=== PATIENT | male | born 1960 | race Caucasian/White ===

== ENCOUNTER 2018-04-11 14:28 | Observation (INO) | payer MEDICAID ==
--- NOTE | 2018-04-11 15:02 | RAD ---
HISTORY: CP, chest pain, shortness of breath COMPARISONS: September 06, 2017. VIEWS: 1: frontal portable view of the chest at 2:47 PM. The right costophrenic angle is partially cut off. FINDINGS: LINES AND TUBES: None. CARDIOMEDIASTINAL SILHOUETTE: The cardiomediastinal silhouette is normal for portable technique. PLEURA: The left costophrenic angle is sharp. LUNG PARENCHYMA: There is patchy alveolar opacification of left lung base. ABDOMEN: The upper abdomen is clear. There is no subphrenic gas. BONES AND SOFT TISSUES: No bone or soft tissue abnormalities are noted. IMPRESSION: PATCHY LEFT BASILAR ATELECTASIS VERSUS EARLY CONSOLIDATION
[2018-04-11 15:12] LABS: ABS Basophils 0.1 10^3/ul (0-0.2); ABS Eosinophils 0.7 10^3/ul (0-0.6); ABS Lymphocytes 0.9 10^3/ul (1.0-4.8); ABS Monocytes 0.3 10^3/ul (0-0.8); ABS Neutrophils 2.1 10^3/ul (1.5-7.7); ABS Nucleated RBC 0 10^3/ul; Eosinophil % 17.4 % (0-6); Hematocrit 39 % (42-52); Hemoglobin 12.9 g/dl (14.0-18.0); Lymphocyte % 21.8 % (25-47); Mean Corpuscular HGB Conc 33 g/dl (31-36); Mean Corpuscular Hemoglobin 30 pg (27-31); Mean Corpuscular Volume 91 fL (80-94); Mean Platelet Volume 8.1 um3 (7.4-10.4); Nucleated Red Blood Cells % 0.1; Platelet Count 199 10^3/ul (150-450); Red Cell Distribution Width 14 % (10.5-15); White Blood Count 4.1 10^3/ul (3.5-10.8)
--- OUTSIDE RECORDS SUMMARY | 2018-04-11 15:12 | XMS REPORT ---
:1960 External Reference #:[id number] Author Organization [facility] Address [address] [place] [address] Phone [phone] Care Team Providers Name Role Phone Shelley Barillas M.D. Care Team Information [employer] Unavailable Shelley Barillas M.D. Primary Care Physician Unavailable Payers Type Date Identification Numbers Payment Provider Subscriber Medicaid Effective: 2014 Policy Number: [id number] [facility] Edin Christiansen PayID: [id number] [address] [address] [place] [address] Problems Date Description Provider Status Onset: 08/11/2010 Mild recurrent major depression Jim Jolly M.D. Active Onset: 08/11/2010 Generalized anxiety disorder Jim Jolly M.D. Active Onset: 08/11/2010 Benign essential hypertension Jim Jolly M.D. Active Onset: 08/11/2010 Irritable bowel syndrome Jim Jolly M.D. Active Onset: 08/25/2010 Coagulation factor deficiency Jim Jolly M.D. Active syndrome Onset: 08/11/2011 Burn One Digit Exc Thumb (2ND Deg) Jim Jolly M.D. Active Onset: 06/10/2015 Essential hypertension ANDRÉS Betancourt Active Onset: 06/22/2015 Allergic rhinitis Jim Jolly M.D. Active Onset: 06/22/2015 Gastroesophageal reflux disease Jim Jolly M.D. Active Onset: 10/05/2015 Acquired spondylolisthesis Jim Jolly M.D. Active Onset: 10/05/2015 Chronic pain syndrome Jim Jolly M.D. Active Onset: 10/05/2015 Aneurysm of thoracic aorta Jim Jolly M.D. Active Onset: 10/05/2015 Microscopic hematuria Jim Jolly M.D. Active Family History Date Family Member(s) Problem(s) Comments Father Coronary Artery Disease (CAD) Father Diabetes Mellitus, II Father Hypertension Mother Breast Cancer Mother Cancer Renal Mother Lung Cancer Mother Diabetes Mellitus, II Mother Hypertension First Brother Lung Cancer Paternal Grandfather Prostate Cancer Maternal Grandmother Neoplasm Of Brain Social History Type Date Description Comments Cigarette Use Current Cigarette Smoker Smoking Patient is a current smoker, smokes every day Allergies, Adverse Reactions, Alerts Date Description Reaction Status Severity Comments 07/10/2013 Erythromycin blisters active Medications Medication Date Status Form Strength Qnty SIG Indications Ordering Provider Nifedipine 12/29 Active Capsules 10mg 30cap Take One R60.0 Claribel s Capsule Patricio, By Mouth OXYACETYLENE CUTTER Every Day Silvadene 12/20 Active Cream 1% 20gm apply S31.102A small Crystal, amount POST OFFICE CLERK over lower abdomina l wall wound once daily Bupropion HCL ER 12/20 Active Tablets ER 300mg 90tab 1 by F34.1 Radha (XL) 24HR s mouth Crystal, every POST OFFICE CLERK day Cpap Mask 08/09 Active 1unit mask and s tubing. Crystal, Use as POST OFFICE CLERK directed . dx: g47.8 Biotene Dry 10/10 Active Liquid 1bott swish/sp R68.2 Radha Mouth le it 5 mL Crystal, up to 5 POST OFFICE CLERK times daily prn dry mouth Pain & Fever 1010 Active Tablets 500mg 120ta Take 1-2 Claribel Amy Extra Strength bs Tablets Patricio, By Mouth OXYACETYLENE CUTTER Every 12 Hours as Needed For Pain Nicoderm CQ 02/22 Active Patches 21mg/24HR 42uni 1 patch Z71.6 Radha 24HR ts transder Crystal, mal POST OFFICE CLERK every 24 hours Nicotine 02/22 Active Patches 14mg/24HR 42uni apply Z71.6 24HR ts once a Crystal, day for POST OFFICE CLERK 4 weeks, then go to every other day Nicotine Mini 02/22 Active Lozenges 2mg 162un use one Z71.6 its lozenge Crystal, every POST OFFICE CLERK hour as needed for cigarett e craving Compression 02/22 Active 14mm HG 2Sets x-large R60.0 Stock knee Crystal, high for POST OFFICE CLERK bilatera l use, 2 sets Furosemide 08/17 Active Tablets 40mg 60tab Take Two R60.0 Jim A. s Tablets Darlow, By Mouth M.D. Every Day Senna 01/28 Active Tablets 8.6mg 60tab take two s tablets Crystal, by mouth POST OFFICE CLERK every day Cialis 10/05 Active Tablets 20mg 2tabs take 08/29 - Darlow, tablet M.D. by mouth for a one time dose on given day, as directed maximum daily dose=one tablet Lorazepam 04/13 Active Tablets 0.5mg 90tab 1 by Radha /2015 s mouth Crystal, daily POST OFFICE CLERK three times a day Fluticasone 09/30 Active Suspension 50mcg/Act 16uni spray 2 J30.89 Radha Propionate ts sprays Crystal, in each POST OFFICE CLERK nostril at bedtime Potassium 03/25 Active Capsules 10Meq 60cap 2 by Radha Chloride ER /2013 ER s mouth Crystal, every POST OFFICE CLERK day with furosemi de Cyclobenzaprine Active Tablets 10mg 90tab 1 by Jim A. HCL / s mouth Darlow, three M.D. times a day Oxycodone HCL Active Tablets 15mg 1 by M51.36 Unknown /0000 mouth every 4h as needed pain Miralax Active Powder 3350NF 17 gm Unknown /0000 powder in fluid daily Gabapentin Active Capsules 300mg 120ca 2 by G89.4 Radha / ps mouth 3 Crystal, times a POST OFFICE CLERK day and 3 po qhs Pantoprazole Active Tablets DR 40mg 30tab Take One Jim A. Sodium / s Tablet Darlow, po bid M.D. Dicyclomine HCL Active Tablets 20mg 180ta Take 2 Rell F. /0000 bs Tablets Shallish, By Mouth M.D. AT Bedtime as Needed And 1 Tablet Every 6 Hours as Needed For Spasms Embeda Active Capsules 50-2mg Unknown /0000 ER Levofloxacin 09/07 Hx Tablets 500mg 10tab 1 by Radha /2018 s mouth Crystal, - every POST OFFICE CLERK 09/20 day 10 days Amoxicillin 07/19 Hx Tablets 875mg 14tab 1 tab Jim A. s twice a Shanae, - day x 7 M.D. Medrol 03/04 Hx TBPK 4mg 21uni use as Sandra LThomas ts directed Nay Wetzel M.D. 03/27 Doxycycline 02/22 Hx Capsules 100mg 28cap take one Z71.6 Radha Hycl s capsule Crystal, - by mouth POST OFFICE CLERK 03/06 twice a day Amoxicillin/Clav 01/12 Hx Tablets 875-125mg 20tab take one Jim AThomas anat s tab by Shanae Potassium - mouth M.D. 02/21 twice a day x 10 days Adjustable Cane 10/21 Hx 1unit use as Radha /2017 s directed Nay Rojas Dx: POST OFFICE CLERK 02/21 g89. Temazepam 09/14 Hx Capsules 15mg 30cap 1 by s mouth at [facility], - bedtime POST OFFICE CLERK 02/21 needed Amoxicillin/Clav 05/31 Hx Tablets 875-125mg 20tab take one Radha anat s tab by Crystal Potassium - mouth POST OFFICE CLERK 07/06 twice a day x 10 days Venlafaxine HCL 04/19 Hx Tablets 37.5mg 90tab take F34.[address] [facility], - day POST OFFICE CLERK 04/19 Bupropion HCL 04/19 Hx Tablets 100mg 60tab take F34.1 s twotable Crystal, - ts by POST OFFICE CLERK 12/20 /2017 every day Prednisone 03/15 Hx Tablets 5mg 78tab 12 po 782.1 s today, Crystal, - decrease POST OFFICE CLERK 05/12 by 1 qd until gone Mometasone 03/15 Hx Cream 0.1% 45gm apply to R21 Radha affected Crystal, - areas POST OFFICE CLERK 09/14 twice a day Physical Therapy 02/16 Hx please assist Crystal, - with POST OFFICE CLERK 05/12 gait and balance stabiliz ation in addition to lymphade nopathy treatmen ts; needs strength and enduranc e Citrucel 01/28 Hx Powder 907gm one dose K59.01 Radha per day Crystal, - to POST OFFICE CLERK 09/14 facilit te daily BM, orange flavor please Lasix 12/15 Hx Tablets 40mg 60tab 2 by R60.0 Jim s mouth Darlow, - daily M.D. 08/17 Nisoldipine ER 12/09 Hx Tablets ER 17mg 30tab Take One R60.0 24HR s Tablet Darlow, - By Mouth M.D. 12/29 Day Anucort-HC 11/18 Hx Suppositor 25mg [address] K64.1 y ts of [facility], - rectum Afnp-C 11/24 twice a day Nicoderm CQ 06/22 Hx Patches 21mg/24HR 42uni 1 patch 24HR ts daily x Shanae, - 6 weeks M.D. 08/03 Amoxicillin 05/15 Hx Tablets 875mg 14tab 1 po bid s Crystal, - POST OFFICE CLERK 06/10 Lisinopril 05/13 Hx Tablets 10mg 30tab Take One I10 Jim s Tablet Darlow, - By Mouth M.D. 01/28 Day Work Note 01/13 Hx Excuse E812.0 01/06-12/26 Eran, - 9; clear M.D. 05/13 to return to work 01/14 Amoxicillin 10/31 Hx Tablets 875mg 14tab 1 po bid s Crystal, - POST OFFICE CLERK 01/13 Oxycodone-Acetam 09/30 Hx Tablets 7.5-325mg 20tab 1 by Jim Hammer inophen s mouth Darlow, - every 6 M.D. 09/30 hours needed pain Oxycodone HCL 09/30 Hx Tablets 20mg 60tab 1 by Jim A. s mouth Darlow, - two M.D. 01/13 times a day Montelukast 09/30 Hx Tablets 10mg 90tab Take One 477.8 Jim A. s Tablet Darlow, - By Mouth M.D. 06/22 Day Mometasone 08/15 Hx Cream 0.1% 45gm apply to 782.1 Radha Furoate affected Crystal, - areas POST OFFICE CLERK 09/30 twice a day Prednisone 07/23 Hx Tablets 5mg 78tab 12 po 782.1 Jim A. s todayShanae, - decrease M.D. 08/04 by 1 qd until gone Oxycodone/Acetam 05/15 Hx Tablets 5-325mg 40tab 1 by Jim Hammer inophen s mouth Darbertha, - every 6 M.D. for pain Prednisone 04/23 Hx Tablets 5mg 78tab 12 po 782.1 Jim A. s Shanae christopher, - decrease M.D. 05/05 by 1 qd until gone Permethrin 03/25 Hx Cream 5% 2trea apply 782.1 Jim A. tmen head to Shanae, - toe M.D. 04/15 leave on for 8 hours then wash off, repeat in 2 weeks if not totally gone Prednisone 03/25 Hx Tablets 5mg 78tab 12 po 782.1 Jim A. s Shanae christopher, - decrease M.D. 04/06 by 1 qd until gone Lasix 03/25 Hx Tablets 20mg 90tab 2 by R60.0 Jim A. s mouth Shanae, - every M.D. Physical Therapy 01/27 Hx treatmen 724.5 Jim A. t and Shanae, - evaluati M.D. 02/08 on shoulder and bilatera l lower back pain Prednisone 01/27 Hx Tablets 10mg 19tab 4 po x 2 782.1 Jim A. s days, Darlow, - then 3 M.D. 02/03 po x 2 days, then 2 po x 2 days,the n 1 po x 1 day Diltiazem HCL ER 01/27 Hx Tablets ER 360mg 90tab 1 by Jim A. 24HR s mouth Darlow, - once a M.D. Cialis 12/25 Hx Tablets 10mg 9tabs Take 1 tablet Crystal, - by mouth POST OFFICE CLERK 08/15 one time per day for erectile dysfunct ion - Not Cialis for Daily Use Viagra 12/25 Hx Tablets 25mg 10tab take 1 302.72 s po 30-45 Crystal, - minutes POST OFFICE CLERK 01/27 prior to sexual intercou rse, nte 1 daily Prednisone 12/25 Hx Tablets 5mg 30tab take 2 691.8 s po bid x Crystal, - 3 days, POST OFFICE CLERK 01/27 take 1 po tid x 3 days, then take 1 po bid x 3 days, then 1 po qd x 3 days, then stop Eucerin 12/25 Hx Cream 1bott apply 691.[address] [facility], - shower POST OFFICE CLERK 09/30 Doxycycline 12/25 Hx Tablets 100mg 20tab one tab 682.8 s po bid Crystal, - for 10 POST OFFICE CLERK Levofloxacin 11/13 Hx Tablets 500mg 10tab 1 po qd Jim . s x10 days Shanae, - M.D. 11/23 Cialis 10/24 Hx Tablets 10mg 9tabs Take 1 tablet Darlow, - by mouth M.D. 12/25 one time per day for erectile dysfunct ion - Not Cialis for Daily Use Iron Supplement 07/15 Hx Tablets 325(65Fe) mg 90tab 1 po qd Radha /2013 s Crystal, - POST OFFICE CLERK 07/31 Lasix 07/10 Hx Tablets 20mg 30tab 08/29 tab 782.3 s po qd as Crystal, - directed POST OFFICE CLERK 07/31 Cartia XT 11/20 Hx Caps ER 240mg 90cap 1 po qd Radha 24HR s Crystal, - POST OFFICE CLERK 07/31 Lisinopril 11/20 Hx Tablets 10mg 90tab 1 po qd Jim A. Nay Ward M.D. 07/10 Amoxicillin 08/19 Hx Tablets 875mg 14tab 1 po bid Jim A. /2010 Nay Ward M.D. 08/26 Ativan 08/08 Hx Tablets 0.5mg 60tab 1 by Jim A. s mouth up Shanae, - to twice M.D. 05/13 a day directed Cardizem CD 07/06 Hx Caps ER 120mg 30cap 2 po qd 443.0 Jim A. 24HR s Nay Jolly M.D. 11/20 Zaleplon 06/01 Hx Capsules 10mg 30cap 1 qd 296.31 Jim A. /2010 Nay Ward M.D. 07/10 Ciprofloxacin 04/13 Hx Tablets 250mg 20tab 1 po bid Jim Hammer Nay Ward M.D. 04/23 Tylenol/Codeine 04/13 Hx Tablets 300-30mg 20tab 1 po q6h Jim Hammer #3 s prn pain Nay Jolly M.D. 04/18 Nifediac cc 02/28 Hx Tablets ER 30mg 30tab Take 1 443.0 Jim A. 24HR s Tablet Shanae, - By Mouth M.DThomas 07/06 Day Potassium 02/25 Hx Capsules 10Meq 60cap take one Radha Chloride ER ER s capsule Crystal, - by mouth POST OFFICE CLERK 07/31 day with lasix Chato Stockings 02/21 Hx Medium 2Pair wear as R60.0 Radha Below Knee Compression directed Crystal, - ; POST OFFICE CLERK 02/21 for medium compress ion 30-40 dx: r60.0 Lasix 02/21 Hx Tablets 10mg 30tab 1 po qd 782.3 Jim A. s as Shanae - directed M.DThomas 07/10 Lunesta 02/10 Hx Tablets 3mg 30tab 1 po qhs Jim A. /2010 s Nay Jolly M.DThomas 02/21 Zolpidem 01/18 Hx Tablets 10mg 30tab 1 qhs Jim A. Tar s aNy Jolly M.DThomas 08/08 Adalat cc 08/25 Hx Tablets ER 30mg 30tab 1 po qd 443.0 Ijm A. 24HR Nay Ward.DThomas 02/28 Vitamin D Hx Tablets 2000Unit 30tab 1 po qd Unknown / s - 02/21 Vistaril Hx Capsules 25mg 360ca 1 or 2 Jim A. /0000 ps every 6 Darbertha, - hours M.D. 08/08 pr Trazodone HCL Hx Tablets 50mg 135ta 1-1 1/2 Jim A. /0000 bs tablet Shanae, - hs prn M.D. 01/18 sleep Lisinopril Hx Tabs 20mg 90tab Take 1 Jim A. /0000 s Tablet Darlow, - By Mouth M.D. 02/21 Day Potassium Hx Tablets 2 po qd Unknown Gluconate / - 02/25 Vitamin B-12 Hx Injection q 4 Unknown /0000 weeks - 07/10 Ferrous Sulfate Hx Tablets 325(65Fe) mg 30tab 1 po qd Unknown /0000 s - 08/11 Bupropion HCL ER 0000 Hx Tablets ER 200mg 90tab 1 po qd Jim A. /0000 12HR s Nay Jolly M.DThomas 07/31 Lisinopril Hx Tablets 20mg 90tab Take 1/2 Jim A. /0000 s Tablet Darlow, - By Mouth M.D. 11/20 Day Trazodone HCL 00 Hx Tablets 300mg 30tab take one Jim A. /0000 s tablet Darbertha, - by mouth M.D. 05/13 at bedtime Iron Infusion 00/ Hx once q Unknown /0000 week - 01/27 Diltiazem HCL / Hx Caps ER 360mg 30cap 1 po qd Jim A. /0000 24HR s Shanae, - M.D. 01/27 Bupropion HCL SR Hx Tablets ER 150mg 60tab 1 po qd Unknown /0000 12HR s - 12/25 Gabapentin Hx Capsules 300mg 90cap 1 by Unknown /0000 s mouth - three 10/20 times day Oxycodone HCL Hx Tablets 10mg 1 po up Unknown /0000 to 5 - times 05/13 per prn Advil Hx Tablets 200mg prn Unknown /0000 - 05/13 Gabapentin Hx Capsules 600mg 1 po qid M51.36 Unknown / - 12/09 Valium / Hx Tablets 5mg 1 po q 6 Unknown /0000 hrs prn - muscle 01/28 spasms Senna /00 Hx Tablets 8.6 60tab 2 by Jim A. /0000 s mouth Shanae, - every M.D. Senna-Lax /[address] daily Unknown /0000 - 12/09 Morphine Sulfate 00/00 Hx Caps ER 30mg 1 q 12 Unknown ER /0000 24HR hrs - 01/28 Clindamycin HCL 00/ Hx Capsules 1 po qid Unknown /0000 - 01/28 Fentanyl 00/00 Hx Patches 25mcg/HR change q Unknown /0000 72HR 3 days - 07/06 Fentanyl 00/00 Hx 12.5mcg/ Change Unknown /0000 Every - Days 07/06 Bactrim DS 00/00 Hx Tablets 800-160mg 1 by Unknown /0000 mouth - twice a /2016 x7days Fentanyl 00/00 Hx Patches 50mcg/HR change Unknown /0000 72HR q3 days - 03/28 Benadryl Allergy 00 Hx Tablets 25mg 180ta 1 - 2 by Jim A. /0000 bs mouth Darlow, - every 8 M.D. Acetaminophen 00 Hx Tablets 325mg 180ta take one Jim A. /0000 bs to two Darlow, - tablets M.D. 06/06 by mouth three times a day Banophen Hx Capsules 25mg 180ca take one Radha /0000 ps to two Crystal, - capsules POST OFFICE CLERK 12/20 by mouth every 8 hours max/day= 6 Morphine Sulfate Hx Caps ER Unknown ER 24HR - 03/28 Medications Administered in Office Medication Date Status Form Strength Qnty SIG Indications Ordering Provider Brief 12/20/ Administered Injection Radha Emotional/Behav 2017 Crystal, Assessment W/ POST OFFICE CLERK Scoring Doc Per Standard Inst B-12 Injection 01/27/ Administered Injection Jim A. 2013 Romel Jolly Injection 01/27/ Administered Injection Jim AThomas Subcutaneous Or 2013 Farhat Jolly M.D. B-12 Injection 11/20/ Administered Injection Jim A. 2011 Romel Jolly Injection 11/20/ Administered Injection Jim AThomas Subcutaneous Or 2011 Farhat Jolly M.D. Immunizations CPT Code Status Date Vaccine Lot # [id number] Given 12/20/2017 Tdap Tetanus, W Pertussis [id number] Given 12/20/2017 Pneumococcal Conjugate Vacc-13 [id number] 22200 Given 06/06/2017 Influenza Vac, Quadrivalent, Slit Virus, Im [id number] Given 07/06/2016 Influenza Vac, Quadrivalent, Slit Virus, Im [id number] [id number] Given 07/10/2013 DO Not Use Split Influenza Virus Vaccine [id number] Given 08/11/2010 DO Not Use Split Influenza Virus Vaccine [id number] Vital Signs Date Vital Result Comment 03/28/2018 BP Systolic 158 mmHg BP Diastolic 90 mmHg Heart Rate 84 /min Body Temperature 98.0 F Respiratory Rate 18 /min Weight 336.00 lb 12/20/2017 BP Systolic 134 mmHg BP Diastolic 82 mmHg Heart Rate 76 /min Body Temperature 98.5 F Respiratory Rate 16 /min Height 74 inches 6'2" Weight 340.00 lb BMI (Body Mass Index) 43.6 kg/m2 09/21/2017 BP Systolic 136 mmHg BP Diastolic 82 mmHg Heart Rate 80 /min Body Temperature 97.9 F Height 74 inches 6'2" Weight 320.25 lb BMI (Body Mass Index) 41.1 kg/m2 09/06/2017 BP Systolic 110 mmHg BP Diastolic 70 mmHg Heart Rate 92 /min Body Temperature 98.2 F Respiratory Rate 18 /min O2 % BldC Oximetry 95 % Height 74 inches 6'2" Weight 324.00 lb BMI (Body Mass Index) 41.6 kg/m2 06/06/2017 BP Systolic 126 mmHg BP Diastolic 66 mmHg Heart Rate 84 /min Body Temperature 98.1 F Respiratory Rate 16 /min Height 74 inches 6'2" Weight 327.50 lb BMI (Body Mass Index) 42.0 kg/m2 02/22/2017 BP Systolic 146 mmHg BP Diastolic 80 mmHg Heart Rate 86 /min Body Temperature 98.4 F Height 74 inches 6'2" Weight 313.12 lb BMI (Body Mass Index) 40.2 kg/m2 09/14/2016 BP Systolic 140 mmHg BP Diastolic 82 mmHg Heart Rate 64 /min Body Temperature 98.4 F Respiratory Rate 18 /min Height 74 inches 6'2" Weight 331.25 lb BMI (Body Mass Index) 42.5 kg/m2 07/13/2016 BP Systolic 124 mmHg BP Diastolic 78 mmHg Heart Rate 68 /min Body Temperature 98.0 F Respiratory Rate 16 /min Height 74 inches 6'2" Weight 336.12 lb BMI (Body Mass Index) 43.2 kg/m2 07/06/2016 BP Systolic 126 mmHg BP Diastolic 80 mmHg Heart Rate 76 /min Body Temperature 98.0 F Respiratory Rate 18 /min Height 74 inches 6'2" Weight 336.12 lb BMI (Body Mass Index) 43.2 kg/m2 05/13/2016 BP Systolic 154 mmHg BP Diastolic 86 mmHg Heart Rate 84 /min Body Temperature 98.1 F Height 74 inches 6'2" Weight 341.38 lb BMI (Body Mass Index) 43.8 kg/m2 04/19/2016 BP Systolic 132 mmHg BP Diastolic 80 mmHg Heart Rate 80 /min Body Temperature 98.8 F Respiratory Rate 18 /min Height 74 inches 6'2" 02/17/2016 BP Systolic 124 mmHg BP Diastolic 82 mmHg Heart Rate 72 /min Body Temperature 98.0 F Respiratory Rate 18 /min Height 74 inches 6'2" Weight 332.00 lb BMI (Body Mass Index) 42.6 kg/m2 01/29/2016 BP Systolic 130 mmHg BP Diastolic 80 mmHg Heart Rate 76 /min Body Temperature 98.5 F Respiratory Rate 16 /min Height 74 inches 6'2" Weight 315.00 lb BMI (Body Mass Index) 40.4 kg/m2 12/16/2015 BP Systolic 130 mmHg BP Diastolic 80 mmHg Heart Rate 80 /min Body Temperature 98.0 F Respiratory Rate 18 /min Height 74 inches 6'2" Weight 322.00 lb BMI (Body Mass Index) 41.3 kg/m2 12/10/2015 BP Systolic 138 mmHg BP Diastolic 80 mmHg Heart Rate 80 /min Body Temperature 98.0 F Respiratory Rate 16 /min Height 74 inches 6'2" Weight 320.00 lb BMI (Body Mass Index) 41.1 kg/m2 11/19/2015 BP Systolic 140 mmHg BP Diastolic 84 mmHg Heart Rate 62 /min Body Temperature 97.9 F Respiratory Rate 20 /min Height 74 inches 6'2" Weight 318.00 lb BMI (Body Mass Index) 40.8 kg/m2 10/05/2015 BP Systolic 130 mmHg BP Diastolic 80 mmHg Heart Rate 76 /min Body Temperature 98.6 F Respiratory Rate 12 /min Height 74 inches 6'2" Weight 308.00 lb BMI (Body Mass Index) 39.5 kg/m2 07/03/2015 BP Systolic 124 mmHg BP Diastolic 90 mmHg Heart Rate 64 /min Body Temperature 97.2 F Respiratory Rate 12 /min Height 74 inches 6'2" Weight 320.00 lb BMI (Body Mass Index) 41.1 kg/m2 06/22/2015 BP Systolic 150 mmHg BP Diastolic 84 mmHg Heart Rate 76 /min Body Temperature 97.8 F Respiratory Rate 16 /min Height 74 inches 6'2" Weight 320.00 lb BMI (Body Mass Index) 41.1 kg/m2 06/10/2015 BP Systolic 128 mmHg BP Diastolic 82 mmHg Heart Rate 88 /min Body Temperature 98.6 F Respiratory Rate 16 /min Height 74 inches 6'2" Weight 324.12 lb BMI (Body Mass Index) 41.6 kg/m2 05/13/2015 BP Systolic 148 mmHg BP Diastolic 92 mmHg Heart Rate 64 /min Body Temperature 98.4 F Respiratory Rate 16 /min Height 74 inches 6'2" Weight 327.25 lb BMI (Body Mass Index) 42.0 kg/m2 01/13/2015 BP Systolic 130 mmHg BP Diastolic 80 mmHg Heart Rate 64 /min Body Temperature 98.2 F Respiratory Rate 12 /min Height 74 inches 6'2" Weight 322.00 lb BMI (Body Mass Index) 41.3 kg/m2 10/20/2014 BP Systolic 138 mmHg BP Diastolic 80 mmHg Heart Rate 64 /min Body Temperature 97.8 F Respiratory Rate 12 /min Height 74 inches 6'2" Weight 314.00 lb BMI (Body Mass Index) 40.3 kg/m2 09/30/2014 BP Systolic 130 mmHg BP Diastolic 80 mmHg Heart Rate 64 /min Body Temperature 97.6 F Respiratory Rate 20 /min O2 % BldC Oximetry 95 % Height 74 inches 6'2" Weight 316.00 lb BMI (Body Mass Index) 40.6 kg/m2 08/15/2014 BP Systolic 136 mmHg BP Diastolic 82 mmHg Heart Rate 76 /min Body Temperature 98.1 F Respiratory Rate 16 /min Height 74 inches 6'2" Weight 314.00 lb BMI (Body Mass Index) 40.3 kg/m2 03/25/2014 BP Systolic 130 mmHg BP Diastolic 78 mmHg Heart Rate 72 /min Body Temperature 97.4 F Respiratory Rate 15 /min Height 74 inches 6'2" Weight 308.00 lb BMI (Body Mass Index) 39.5 kg/m2 01/27/2014 BP Systolic 130 mmHg BP Diastolic 86 mmHg Heart Rate 72 /min Body Temperature 97.5 F Respiratory Rate 12 /min Height 74 inches 6'2" Weight 295.00 lb BMI (Body Mass Index) 37.9 kg/m2 12/25/2013 BP Systolic 122 mmHg BP Diastolic 80 mmHg Heart Rate 60 /min Body Temperature 97.6 F Respiratory Rate 16 /min Height 74 inches 6'2" Weight 299.00 lb BMI (Body Mass Index) 38.4 kg/m2 10/28/2013 BP Systolic 126 mmHg BP Diastolic 80 mmHg Heart Rate 62 /min Body Temperature 97.5 F Respiratory Rate 18 /min Height 74 inches 6'2" Weight 285.00 lb BMI (Body Mass Index) 36.6 kg/m2 07/31/2013 BP Systolic 116 mmHg BP Diastolic 70 mmHg Heart Rate 60 /min Body Temperature 97.4 F Respiratory Rate 16 /min Height 74 inches 6'2" Weight 279.00 lb BMI (Body Mass Index) 35.8 kg/m2 07/10/2013 BP Systolic 120 mmHg BP Diastolic 80 mmHg Heart Rate 60 /min Body Temperature 97.2 F Respiratory Rate 16 /min Height 74 inches 6'2" Weight 283.00 lb BMI (Body Mass Index) 36.3 kg/m2 11/21/2011 BP Systolic 120 mmHg BP Diastolic 70 mmHg Heart Rate 60 /min Body Temperature 98.4 F Respiratory Rate 16 /min Height 74 inches 6'2" Weight 293.00 lb BMI (Body Mass Index) 37.6 kg/m2 08/17/2011 BP Systolic 120 mmHg BP Diastolic 80 mmHg Heart Rate 68 /min Body Temperature 98.0 F Respiratory Rate 12 /min Height 74 inches 6'2" Weight 297.00 lb BMI (Body Mass Index) 38.1 kg/m2 08/11/2011 BP Systolic 120 mmHg BP Diastolic 84 mmHg Heart Rate 60 /min Body Temperature 98.0 F Respiratory Rate 16 /min Height 74 inches 6'2" Weight 288.00 lb BMI (Body Mass Index) 37.0 kg/m2 06/01/2011 BP Systolic 120 mmHg BP Diastolic 80 mmHg Heart Rate 64 /min Body Temperature 97.7 F Respiratory Rate 12 /min Height 74 inches 6'2" Weight 294.00 lb BMI (Body Mass Index) 37.7 kg/m2 04/25/2011 BP Systolic 140 mmHg BP Diastolic 80 mmHg Heart Rate 60 /min Body Temperature 98.1 F Respiratory Rate 16 /min Height 74 inches 6'2" Weight 293.00 lb BMI (Body Mass Index) 37.6 kg/m2 02/21/2011 BP Systolic 130 mmHg BP Diastolic 80 mmHg Heart Rate 60 /min Body Temperature 98.6 F Respiratory Rate 20 /min Height 74 inches 6'2" Weight 291.00 lb BMI (Body Mass Index) 37.4 kg/m2 08/25/2010 BP Systolic 118 mmHg BP Diastolic 80 mmHg Heart Rate 60 /min Body Temperature 97.4 F Respiratory Rate 12 /min Height 74 inches 6'2" Weight 277.00 lb BMI (Body Mass Index) 35.6 kg/m2 08/11/2010 BP Systolic 118 mmHg BP Diastolic 78 mmHg Heart Rate 72 /min Body Temperature 97.7 F Respiratory Rate 16 /min Height 74 inches 6'2" Weight 278.00 lb BMI (Body Mass Index) 35.7 kg/m2 Results Test Date Test Result H/L Range Note CBC Auto Diff 03/06/2018 White Blood Count 3.4 10^3/uL Low 3.5-10.8 Red Blood Count 4.39 10^6/uL 4.00-5.40 Hemoglobin 13.3 g/dL Low 14.0-18.0 Hematocrit 41 % Low 42-52 Mean Corpuscular Volume 93 fL 80-94 Mean Corpuscular Hemoglobin 30 pg 27-31 Mean Corpuscular HGB Conc 33 g/dL 31-36 Red Cell Distribution Width 14 % 10.5-15 Platelet Count 170 10^3/uL 150-450 Mean Platelet Volume 8.7 um3 7.4-10.4 Abs Neutrophils 1.9 10^3/uL 1.5-7.7 Abs Lymphocytes 0.6 10^3/uL Low 1.0-4.8 Abs Monocytes 0.3 10^3/uL 0-0.8 Abs Eosinophils 0.6 10^3/uL 0-0.6 Abs Basophils 0 10^3/uL 0-0.2 Abs Nucleated RBC 0 10^3/uL Granulocyte % 55.0 % 38-83 Lymphocyte % 18.8 % Low 25-47 Monocyte % 8.8 % High 0-7 Eosinophil % 16.9 % High 0-6 Basophil % 0.5 % 0-2 Nucleated Red Blood Cells % 0.2 Iron & Iron Binding Capacity 03/06/2018 Iron 72 g/dL 50-212 Unsaturated Iron Binding 174 g/dL Total Iron Binding Capacity 246 g/dL Low 250-450 Transferrin 176 mg/dL Low 203-362 % Iron Saturation 29 % 15-55 Laboratory test finding 03/06/2018 Ferritin 84.1 ng/mL 24-336 Vitamin B12 1223 pg/mL High 180-914 1 Lipid Profile 12/20/2017 Cholesterol 144 mg/dL 120-200 Triglycerides 107 mg/dL 30-200 HDL Cholesterol 45 mg/dL 30-70 LDL (Calculated) 78 CALC 0-129 VLDL Cholesterol 21 mg/dL 0-50 HDL Risk Factor 3.2 CALC 0.0-4.4 Iron & Iron Binding Capacity 11/13/2017 Iron 28 g/dL Low 50-212 Unsaturated Iron Binding 252 g/dL Total Iron Binding Capacity 280 g/dL 250-450 Transferrin 200 mg/dL Low 203-362 % Iron Saturation 10 % Low 15-55 Laboratory test finding 11/13/2017 Ferritin 41.8 ng/mL 24-336 Vitamin B12 268 pg/mL 180-914 2 CBC Auto Diff 11/13/2017 White Blood Count 3.9 10^3/uL 3.5-10.8 Red Blood Count 4.22 10^6/uL 4.0-5.4 Hemoglobin 12.5 g/dL Low 14.0-18.0 Hematocrit 39 % Low 42-52 Mean Corpuscular Volume 92 fL 80-94 Mean Corpuscular Hemoglobin 30 pg 27-31 Mean Corpuscular HGB Conc 32 g/dL 31-36 Red Cell Distribution Width 15 % 10.5-15 Platelet Count 180 10^3/uL 150-450 Mean Platelet Volume 9 um3 7.4-10.4 Abs Neutrophils 2.2 10^3/uL 1.5-7.7 Abs Lymphocytes 0.7 10^3/uL Low 1.0-4.8 Abs Monocytes 0.4 10^3/uL 0-0.8 Abs Eosinophils 0.5 10^3/uL 0-0.6 Abs Basophils 0 10^3/uL 0-0.2 Abs Nucleated RBC 0 10^3/uL Granulocyte % 56.8 % 38-83 Lymphocyte % 17.6 % Low 25-47 Monocyte % 11.1 % High 0-7 Eosinophil % 13.4 % High 0-6 Basophil % 1.1 % 0-2 Nucleated Red Blood Cells % 0 Laboratory test finding 09/21/2017 Sedimentation Rate 23mm Laboratory test finding 09/21/2017 Vitamin B-12 568 pg/mL 230-1050 Complete Blood Count 09/21/2017 WBC 5.6 x10^3/UL 3.6-9.6 RBC 4.38 x10^6/UL 3.90-5.70 HGB 13.0 g/dL 12.1-17.2 HCT 40 % 36-50 MCV 92.0 fL 82.2-97.4 MCH 29.6 pg 27.6-33.3 MCHC 32.2 g/dL Low 33.0-35.5 RDW 14.4 % High 11.6-13.7 PLT 304 x10^3/UL 150-400 MPV 7.6 fL 7.4-10.4 Gran # 4.3 x10^3/UL 1.5-7.2 Lymph# 1.0 x10^3/UL 0.7-4.9 Larue# 0.3 x10^3/UL 0.1-0.9 Gran % 75.0 % 42.2-75.2 Lymph % 18.6 % Low 20.5-51.1 Larue% 6.4 % 1.7-9.3 Laboratory test finding 06/06/2017 Magnesium, Serum 2.0 mEq/L 1.2-2.1 Comprehensive Metabolic Prof 06/06/2017 Sodium 141 mEq/L 134-149 Potassium 4.4 mEq/L 3.6-5.5 Chloride 102 mEq/L 94-112 Carbon Dioxide 26 mEq/L 21-32 Glucose 83 mg/dL 70-105 BUN 9 mg/dL 6-26 Creatinine 1.0 mg/dL 0.6-1.4 BUN/Creat Ratio 9.0 CALC 8.0-36.0 Calcium 8.1 mg/dL Low 8.6-10.2 3 Total Protein 6.0 g/dL Low 6.4-8.3 4 Albumin 3.6 g/dL Low 3.8-5.5 5 Globulin 2.4 g/dL 2.0-4.8 A/G Ratio 1.5 CALC 0.6-2.3 Alk. Phosphatase 79 U/L 22-95 Alt (SGPT) 10 U/L 7-35 Ast (Sgot) 13 U/L 5-34 Total Bilirubin 0.3 mg/dL 0.2-1.3 GFR Non- >60 ml/min/1.73m^ >=60 GFR >60 ml/min/1.73m^ >=60 Toxassure Select 13 (MW) 02/22/2017 Report Summary FINAL 6 PDF . Laboratory test finding 02/22/2017 Specimen Identification Status See Comment: 7 PDF [id number] SEE IMAGE Electrolytes Profile 09/19/2016 Sodium 140 mEq/L 134-149 Potassium 4.5 mEq/L 3.6-5.5 Chloride 106 mEq/L 94-112 Carbon Dioxide 27 mEq/L 21-32 Anion Gap 11.5 7.0-34.0 Laboratory test 08/08/2016 Surgical Interface SEE RESULT BELOW 8 finding Order Laboratory test 07/01/2016 Wound Culture/Sensi SEE RESULT BELOW 9, 10 finding Comp Metabolic Panel 12/10/2015 Sodium 140 mmol/L 133-145 Potassium 4.7 mmol/L 3.5-5.0 Chloride 105 mmol/L 101-111 Co2 Carbon Dioxide 30 mmol/L 22-32 Anion Gap 5 mmol/L 2-11 Glucose 82 mg/dL 70-100 Blood Urea Nitrogen 19 mg/dL 6-24 Creatinine 1.31 mg/dL High 0.67-1.17 BUN/Creatinine Ratio 14.5 8-20 Calcium 8.0 mg/dL Low 8.6-10.3 Total Protein 5.4 g/dL Low 6.4-8.9 Albumin 3.3 g/dL 3.2-5.2 Globulin 2.1 g/dL 2-4 Albumin/Globulin Ratio 1.6 1-3 Total Bilirubin 0.30 mg/dL 0.2-1.0 Alkaline Phosphatase 71 U/L 34-104 Alt 11 U/L 7-52 Ast 11 U/L Low 13-39 Egfr Non- 57.0 >60 Egfr 73.3 >60 11 Laboratory test finding 12/10/2015 Magnesium 1.8 mg/dL Low 1.9-2.7 Ua - Micro (Fma) 06/10/2015 Appearance clear Color yellow Glucose, Urine (Fma/CMC/CTX) neg Bilirubin neg Ketones neg SP Grav <=1.005 Blood large PH 5.5 Protein neg Urobil 0.2 Nitrite neg Leukocytes (Fma/CMC/Centrex) neg Hyaline - /Lpf Granular - /Lpf WBC (Fma,Centrex) 0-2 RBC >100 Mucus - /Lpf Epith rare /Lpf Bacteria - /Hpf Amorphous - /Lpf Crystals, Fluid (Fma/CMC/CTX) - Urine Culture Routine 06/10/2015 Urine Culture, Routine Final report 12 , 13 Result 1 No growth 12, 14 Laboratory test finding 10/20/2014 TSH 0.53 mIU/L 0.50-6.00 Thyroid Autoantibodies 10/20/2014 Thyroglobulin Ab Scrn <1.8 IU/mL <4.0 15, 16 Thyroperoxidase Ab 0.3 IU/mL <9.0 15 Laboratory test finding 10/02/2014 Total T3 1.14 ng/mL 0.87-1.78 17, 18 Free Thyroxine Index 10/02/2014 Thyroxine Binding 1.1 TBI 0.8 - 1.3 17 (Fti),Serum Panel Capacity, S Thyroxine, Total, S 7.9 g/dL 4.5 - 11.7 17 Free Thyroxine Index 7.2 g/dL 4.8 - 12.7 17, 19 Laboratory test 09/30/2014 Free T4 0.99 ng/dL 0.75-1.54 finding Laboratory test 09/30/2014 Brain Natural Peptide 16.1 pg/mL <100 finding Laboratory test 09/30/2014 Homocysteine 16 mcmol/L 20, 21 finding Methylmalonic Acid 0.24 nmol/mL <=0.40 20, 22 Comprehensive Metabolic Prof 09/30/2014 Sodium 138 mEq/L 134-149 Potassium 4.3 mEq/L 3.6-5.5 Chloride 103 mEq/L 94-112 Carbon Dioxide 29 mEq/L 21-32 Glucose 117 mg/dL High 70-105 23 BUN 12 mg/dL 6-26 Creatinine 1.0 mg/dL 0.6-1.4 BUN/Creat Ratio 12.0 CALC 8.0-36.0 Calcium 8.8 mg/dL 8.6-10.2 Total Protein 6.5 g/dL 6.4-8.3 Albumin 3.9 g/dL 3.8-5.5 Globulin 2.6 g/dL 2.0-4.8 A/G Ratio 1.5 CALC 0.6-2.3 Alk. Phosphatase 75 U/L 22-95 Alt (SGPT) 21 U/L 7-35 Ast (Sgot) 17 U/L 5-34 Total Bilirubin 0.6 mg/dL 0.2-1.3 Laboratory test finding 09/30/2014 TSH 0.47 mIU/L Low 0.50-6.00 24 Vitamin B-12 587 pg/mL 230-1050 Ferritin 57 ng/mL 22-415 Complete Blood Count 09/30/2014 WBC 5.5 x10^3/UL 3.6-9.6 RBC 4.89 x10^6/UL 3.90-5.70 HGB 15.1 g/dL 12.1-17.2 HCT 45 % 36-50 MCV 92.0 fL 82.2-97.4 MCH 30.8 pg 27.6-33.3 MCHC 33.6 g/dL 33.0-35.5 RDW 12.4 % 11.6-13.7 PLT 179 x10^3/UL 150-400 MPV 7.8 fL 7.4-10.4 Gran # 4.4 x10^3/UL 1.5-7.2 Lymph# 1.0 x10^3/UL 0.7-4.9 Larue# 0.1 x10^3/UL 0.1-0.9 Gran % 77.5 % High 42.2-75.2 Lymph % 19.5 % Low 20.5-51.1 Larue% 3.0 % 1.7-9.3 Laboratory test finding 09/05/2014 [facility] [place] [facility] [place] Comprehensive Metabolic Prof 08/15/2014 Sodium 143 mEq/L 134-149 Potassium 5.1 mEq/L 3.6-5.5 Chloride 103 mEq/L 94-112 Carbon Dioxide 26 mEq/L 21-32 Glucose 77 mg/dL 70-105 BUN 11 mg/dL 6-26 Creatinine 1.0 mg/dL 0.6-1.4 BUN/Creat Ratio 11.0 CALC 8.0-36.0 Calcium 8.7 mg/dL 8.6-10.2 Total Protein 6.8 g/dL 6.4-8.3 Albumin 3.9 g/dL 3.8-5.5 Globulin 2.4 g/dL 2.0-4.8 A/G Ratio 1.3 CALC 0.6-2.3 Alk. Phosphatase 65 U/L 22-95 Alt (SGPT) 15 U/L 7-35 Ast (Sgot) 13 U/L 5-34 Total Bilirubin 0.4 mg/dL 0.2-1.3 Complete Blood Count 08/15/2014 WBC 5.1 x10^3/UL 3.6-9.6 RBC 4.75 x10^6/UL 3.90-5.70 HGB 14.6 g/dL 12.1-17.2 HCT 43 % 36-50 MCV 91.0 fL 82.2-97.4 MCH 30.7 pg 27.6-33.3 MCHC 33.8 g/dL 33.0-35.5 RDW 13.1 % 11.6-13.7 PLT 168 x10^3/UL 150-400 MPV 7.6 fL 7.4-10.4 Gran # 4.1 x10^3/UL 1.5-7.2 Lymph# 0.9 x10^3/UL 0.7-4.9 Larue# 0.1 x10^3/UL 0.1-0.9 Gran % 78.9 % High 42.2-75.2 Lymph % 18.0 % Low 20.5-51.1 Larue% 3.1 % 1.7-9.3 Laboratory test finding 08/15/2014 Uric Acid 5.0 mg/dL 2.5-9.2 Laboratory test finding 08/15/2014 Sed Rate 6mm (Fma/CMC/Centrex) CBC No Diff 06/27/2014 White Blood Count 5.6 10^3/uL 4.8-10.8 Red Blood Count 4.82 10^6/uL 4.0-5.4 Hemoglobin 14.1 g/dL 14.0-18.0 Hematocrit 42 % 42-52 Mean Corpuscular Volume 88 fL 80-94 Mean Corpuscular Hemoglobin 29 pg 27-31 Mean Corpuscular HGB Conc 34 g/dL 31-36 Red Cell Distribution Width 14 % 10.5-15 Platelet Count 162 10^3/uL 150-450 Mean Platelet Volume 9 um3 7.4-10.4 Basic Metabolic Panel 06/27/2014 Sodium 137 mmol/L 133-145 Potassium 4.5 mmol/L 3.7-5.6 Chloride 106 mmol/L 101-111 Co2 Carbon Dioxide 28 mmol/L 22-32 Anion Gap 3 mmol/L 2-11 Glucose 85 mg/dL 70-100 Blood Urea Nitrogen 15 mg/dL 6-24 Creatinine 1.18 mg/dL High 0.67-1.17 BUN/Creatinine Ratio 12.7 8-20 Calcium 8.7 mg/dL 8.6-10.3 Egfr Non- 64.6 >60 Egfr 83.0 >60 25 Inr/Protime 06/27/2014 Inr 1.09 High 0.85-1.06 Laboratory test finding 06/27/2014 Activated Partial 34.5 seconds 24.0- 36.1 Thrombo Time Type & Screen 06/27/2014 Patient Blood Type O Positive Antibody Screen NEGATIVE CBC Auto Diff 05/29/2014 White Blood Count 4.4 10^3/uL Low 4.8-10.8 Red Blood Count 4.36 10^6/uL 4.0-5.4 Hemoglobin 12.8 g/dL Low 14.0-18.0 Hematocrit 38 % Low 42-52 Mean Corpuscular Volume 88 fL 80-94 Mean Corpuscular Hemoglobin 29 pg 27-31 Mean Corpuscular HGB Conc 33 g/dL 31-36 Red Cell Distribution Width 14 % 10.5-15 Platelet Count 187 10^3/uL 150-450 Mean Platelet Volume 9 um3 7.4-10.4 Abs Neutrophils 2.6 10^3/uL 1.5-7.7 Abs Lymphocytes 1.0 10^3/uL 1.0-4.8 Abs Monocytes 0.3 10^3/uL 0-0.8 Abs Eosinophils 0.5 10^3/uL 0-0.6 Abs Basophils 0 10^3/uL 0-0.2 Abs Nucleated RBC 0.01 10^3/uL Granulocyte % 59.1 % 38-83 Lymphocyte % 22.1 % Low 25-47 Monocyte % 7.0 % 1-9 Eosinophil % 10.7 % High 0-6 Basophil % 1.1 % 0-2 Nucleated Red Blood Cells % 0.1 Comp Metabolic Panel 05/29/2014 Sodium 139 mmol/L 133-145 Potassium 4.1 mmol/L 3.7-5.6 Chloride 109 mmol/L 101-111 Co2 Carbon Dioxide 28 mmol/L 22-32 Anion Gap 2 mmol/L 2-11 Glucose 87 mg/dL 70-100 Blood Urea Nitrogen 12 mg/dL 6-24 Creatinine 1.17 mg/dL 0.67-1.17 BUN/Creatinine Ratio 10.3 8-20 Calcium 8.5 mg/dL Low 8.6-10.3 Total Protein 6.4 g/dL 6.4-8.9 Albumin 3.8 g/dL 3.2-5.2 Globulin 2.6 g/dL 2-4 Albumin/Globulin Ratio 1.5 1-3 Total Bilirubin 0.30 mg/dL 0.2-1.0 Alkaline Phosphatase 63 U/L 34-104 Alt 12 U/L 7-52 Ast 12 U/L Low 13-39 Egfr Non- 65.2 >60 Egfr 83.9 >60 26 Iron & Iron Binding Capacity 05/29/2014 Iron 30 g/dL Low 50-212 Unsaturated Iron Binding 352 g/dL Total Iron Binding Capacity 382 g/dL 250-450 % Iron Saturation 8 % Low 15-55 Laboratory test finding 05/29/2014 Ferritin 12.3 ng/mL Low 24-336 Vitamin B12 528 pg/mL 180-914 27 Folate 16.17 ng/mL >3.99 Vitamin D, 25 Hydroxy 05/29/2014 25-Hydroxy Vitamin D2 <4.0 ng/mL 25-Hydroxy Vitamin D3 15 ng/mL 25-Hydroxy Vitamin D Total 15 ng/mL 28 Laboratory test finding 05/29/2014 Vitamin B1 Whole Blood 112 nmol/L 70- 180 29 Vitamin E Level 5.0 mg/L 5.5 - 17.0 30 CBC With Manual Diff 03/25/2014 White Blood Count 6.3 10^3/uL 4.8-10.8 Red Blood Count 4.67 10^6/uL 4.0-5.4 Hemoglobin 13.9 g/dL Low 14.0-18.0 Hematocrit 41 % Low 42-52 Mean Corpuscular Volume 87 fL 80-94 Mean Corpuscular Hemoglobin 30 pg 27-31 Mean Corpuscular HGB Conc 34 g/dL 31-36 Red Cell Distribution Width 13 % 10.5-15 Platelet Count 173 10^3/uL 150-450 Mean Platelet Volume 9 um3 7.4-10.4 Abs Neutrophils 3.9 10^3/uL 1.5-7.7 Abs Lymphocytes 1.0 10^3/uL 1.0-4.8 Abs Monocytes 0.5 10^3/uL 0-0.8 Abs Eosinophils 0.8 10^3/uL High 0-0.6 Abs Basophils 0.1 10^3/uL 0-0.2 Abs Nucleated RBC 0.01 10^3/uL Neutrophil % 64 % 38-83 Lymphocytes % 12 % Low 25-47 Monocytes % 4 % 0-13 Eosinophils % 20 % High 0-6 RBC Morphology Normal Normal Iron & Iron Binding Capacity 03/25/2014 Iron 59 g/dL 50-212 Unsaturated Iron Binding 306 g/dL Total Iron Binding Capacity 365 g/dL 250-450 % Iron Saturation 16 % 15-55 Laboratory test finding 03/25/2014 Ferritin 11.2 ng/mL Low 24-336 Vitamin B12 434 pg/mL 180-914 31 Vitamin D 1,25-Dihydroxy 56 pg/mL 18-64 32 Laboratory test finding 02/11/2014 Insulin Level 5.3 mcIU/mL 2.6 - 24.9 33 Hemoglobin A1c 5.4 % Less than 6.0 34 Laboratory test finding 02/11/2014 Glucose Tolerance Test (SEE NOTE) 35 2HR Iron & Iron Binding 09/23/2013 Iron 54 g/dL 45-182 Capacity Unsaturated Iron Binding 281 g/dL Total Iron Binding Capacity 335 g/dL 250-450 % Iron Saturation 16 % 15-55 Laboratory test finding 09/23/2013 Ferritin 50 ng/mL 24-336 Vitamin B12 227 pg/mL 180-914 Laboratory test finding 07/31/2013 PSA Screening 0.709 ng/mL 0-4.000 36 Comp Metabolic Panel 07/31/2013 Sodium 141 mmol/L 133-145 Potassium 4.1 mmol/L 3.5-5.0 Chloride 105 mmol/L 101-111 Co2 Carbon Dioxide 30.0 mmol/L 22-32 Anion Gap 6.0 mmol/L 2-11 Glucose 111 mg/dL High 70-100 Blood Urea Nitrogen 12 mg/dL 6-24 Creatinine 1.20 mg/dL 0.50-1.40 BUN/Creatinine Ratio 10.0 8-20 Calcium 8.9 mg/dL 8.1-9.9 Total Protein 6.7 g/dL 6.2-8.1 Albumin 4.1 g/dL 3.6-5.4 Globulin 2.6 g/dL 2-4 Albumin/Globulin Ratio 1.6 1-3 Total Bilirubin 0.8 mg/dL 0.4-1.5 Alkaline Phosphatase 70 U/L 30-110 Alt 19 U/L 14-54 Ast 16 U/L 12-42 Egfr Non- 63.6 >60 Egfr 81.8 >60 37 Lipid Profile (Trig/Chol/HDL) 07/31/2013 Triglycerides 74 mg/dL 40-200 Cholesterol 170 mg/dL Less than 200 HDL Cholesterol 56 mg/dL 40-60 38 Cholesterol/HDL Ratio 3.0 Average 1-4.44 LDL Cholesterol 99.2 Less Than 100 39 Oncology CBC Auto Diff 07/23/2013 White Blood Count 4.5 10^3/uL Low 4.8- 10.8 Red Blood Count 4.59 10^6/uL 4.0-5.4 Hemoglobin 12.0 g/dL Low 14.0-18.0 Hematocrit 39 % Low 42-52 Mean Corpuscular Volume 85 fL 80-94 Mean Corpuscular Hemoglobin 26 pg Low 27-31 Mean Corpuscular HGB Conc 31 g/dL 31-36 Red Cell Distribution Width 13 % 10.5-15 Platelet Count 183 10^3/uL 150-450 Mean Platelet Volume 9 um3 7.4-10.4 Abs Neutrophils 3.0 10^3/uL 1.5-7.7 Abs Lymphocytes 0.8 10^3/uL Low 1.0-4.8 Abs Monocytes 0.3 10^3/uL 0-0.8 Abs Eosinophils 0.4 10^3/uL 0-0.6 Abs Basophils 0 10^3/uL 0-0.2 Granulocyte % 65.3 % 38-83 Lymphocyte % 18.6 % Low 25-47 Monocyte % 6.7 % 1-9 Eosinophil % 8.3 % High 0-6 Basophil % 1.1 % 0-2 Comprehensive Metabolic 07/10/2013 Glucose 84 mg/dL 70-100 40 BUN 18 mg/dL 5-21 40 Creatinine, Serum 1.04 mg/dL 0.60-1.30 40 Sodium 139 mmol/L 136-146 40 Potassium 4.8 mmol/L 3.5-5.3 40 Chloride 105 mmol/L 98-110 40 Carbon Dioxide 31 mmol/L 20-32 40 Albumin 3.9 g/dL 3.5-4.7 40 Protein, Total 6.5 g/dL 6.4-8.3 40 Calcium 8.4 mg/dL 8.4-10.4 40 Alkaline Phosphatase 85 U/L 10-118 40 Sgot (Ast) 18 U/L 3-40 40 SGPT (Alt) 21 U/L 7-50 40 Bilirubin, Total 0.30 mg/dL 0.30-1.20 40 Laboratory test finding 07/10/2013 T-4 Free 1.0 ng/dL 0.8-1.8 40 TSH (Thyrotropin) 0.880 uIU/ml 0.350-5.500 40 Sedimentation Rate 6 MM/HR 0-15 40 Iron/Tibc,%Sat Group 07/10/2013 Iron 26 g/dL Low 46-155 40 Total Iron Binding Cap. 372 g/dL 250-450 40 % Iron Saturation 7.0 % Low 13.0-45.0 40 Laboratory test finding 07/10/2013 Vitamin D,1,25 Dihydro 65.1 pg/mL 10.0 -75.0 40 Vitamin B-12 323 pg/mL 40, 41 RPR NON-REACTIVE Non-Reactive 40 Anti Viral AB Screen 07/10/2013 HIV 1/O/2 Abs-Index Value <1.00 <1.00 40 , 42 HIV 1/O/2 Abs, Qual Non Reactive Non Reactive 40 CBC 07/10/2013 WBC 4.8 x10E3/uL 4.3-10.9 40 RBC 4.65 x10E6/uL Low 4.70-6.20 40 Hemoglobin 12.7 g/dL Low 13.0-17.0 40 Hematocrit 40.3 % 39.0-50.0 40 MCV 86.7 fl 82.0-98.0 40 MCH 27.3 pg Low 27.5-33.5 40 MCHC 31.5 g/dL Low 32.0-36.0 40 RDW 13.8 % 11.5-14.5 40 Platelet Count 182 x10E3/uL 130-400 40 MPV 11.7 fl 8.6-12.6 40, 43 Segmented Neutrophils 62.6 % 44.0-74.0 40 Lymphocytes 19.4 % 15.0-45.0 40 Monocytes 7.5 % 2.0-13.0 40 Eosinophils 9.2 % High 0.0-6.0 40 Basophils 1.3 % 0.0-2.0 40 Neutrophil Absolute 3.0 x10E3/uL 1.4-7.0 40 Lymphocytes Absolute 0.9 x10E3/uL Low 1.0-3.4 40 Monocyte Absolute 0.4 x10E3/uL 0.2-1.0 40 Eosinophil Absolute 0.4 x10E3/uL 0.0-0.5 40 Basophil Absolute 0.1 x10E3/uL 0.0-0.[address] Jolly 07/10/2013 Antithrombin Antigen 117 % 75-130 40 Protein S Functional 90 % 60-145 40 Protein C&S Ag Panel 07/10/2013 Protein C Antigen 76 % 70-140 40 Protein S, Total 81 % 58-150 40 Protein S, Free 84 % 56-124 40 Factor V Leiden Mut 07/10/2013 Factor V Leiden SEE NOTE 40, 44 Comment: SEE NOTE 40, 45 Lupus Anticoag Reflex 07/10/2013 PTT 30.3 seconds 23.7-35.5 40 Dilute Benjamin's 07/10/2013 dRVVT 30.1 sec 0.0-55.1 40 Viper Venom Anticardiolipin 07/10/2013 Anticardiolipin <9 GPLU/mL 0-14 40, 46 Iga/Igg/Igm QN Ab,IgG,Qn Anticardiolipin Ab,IgM,Qn <9 MPLU/mL 0-12 40, 47 Anticardiolipin Ab,IgA,Qn <9 APLU/mL 0-11 40, 48 Egfr (Calculated) 07/10/2013 Estimated GFR (CALCULATED) 40 Egfr >60 40, 49 Egfr, -Qat[place] >60 40, 50 Laboratory test finding 11/21/2011 Iron 83 g/dL 60-150 CBC Electronic (Fma) 11/21/2011 WBC 5.6 3.6-9.6 RBC 4.76 3.90-5.70 Hemoglobin (Fma/CMC/CTX) 14.2 g/dL 12.1 - 17.2 Hematocrit (Fma/CMC/CTX) 42.6 % 36.1 - 50.3 Platelets 208 10^3/ul 150-400 Lymph% 22.6 20.5-51.1 Mixed% 3.7 Neutrophils % 73.7 Mean Corpuscular Vol 89 82.2-97.4 Mean Corpuscular Hemoglobin 29.8 27.6-33.3 Mean Corpuscular Hemo Concen 33.4 32.0-36.0 RDW 12.2 11.6-13.7 Mean Platelet Volume 8.4 6.5-11.0 CBC No Diff 09/21/2011 White Blood Count 6.6 CUMM 4.8-10.8 Red Cell Count 4.56 CUMM Low 4.6-6.2 Hemoglobin 13.8 g/dL Low 14.0-18.0 Hematocrit 40 % Low 42-52 Mean Corpuscular Volume 88 um3 80-94 Mean Corpuscular Hemoglob 30 pg 27-31 Mean Corpuscular HGB Cone 34 g/dL 32-36 Redcell Distribution WDTH 14 % 10.5-15 Platelet Count 155 CUMM 150-450 Mean Platelet Volume 9.6 um3 7.4-10.4 Basic Metabolic Panel 09/21/2011 Sodium 143 mmol/L 135-145 Potassium 4.4 mmol/L 3.5-5.0 Chloride 106 mmol/L 101-111 Co2 (Carbon Dioxide) 31.0 mmol/L 22-32 Anion Gap 6.0 mmol/L 2-11 51 Glucose 76 mg/dL 70-100 BUN 17 mg/dL 6-24 Creatinine 1.1 mg/dL 0.50-1.40 One Over Creatinine 0.90 BUN/Creatinine Ratio 15.5 8-20 Calcium 8.6 mg/dL 8.1-9.9 eGFR Non- 70.9 > 60 eGFR 91.1 > 60 52 Protime 09/21/2011 Inr 1.12 0.88-1.13 53 Protime 13.3 SEC 10.3-13.5 54 Laboratory test finding 09/21/2011 PTT (Aptt) 31.6 25.15-38.53 CBC Auto Diff 09/13/2011 White Blood Count 4.9 CUMM 4.8-10.8 Red Cell Count 4.49 CUMM Low 4.6-6.2 Hemoglobin 13.5 g/dL Low 14.0-18.0 Hematocrit 41 % Low 42-52 Mean Corpuscular Volume 91 um3 80-94 Mean Corpuscular Hemoglob 30 pg 27-31 Mean Corpuscular HGB Cone 33 g/dL 32-36 Redcell Distribution WDTH 14 % 10.5-15 Platelet Count 142 CUMM Low 150-450 Mean Platelet Volume 9.0 um3 7.4-10.4 Gran % 62.7 % 38-83 Lymph % 22.8 % 20-45 Mononuclear % 7.1 % 1-9 Eosinophil % 6.6 % High 0-6 Basophil % 0.8 % 0-2 Abs Lymphs 1.1 1.0-4.8 Abs Mononuclear 0.3 0-0.8 Absolute Neutrophil Count 3.2 1.5-7.7 Abs Eosinophils 0.3 0-0.6 Abs Basophils 0 0-0.2 Laboratory test finding 09/13/2011 Vitamin B12 307 pg/mL 180-914 Wound Culture 08/17/2011 Wound Culture No growth. .Gram Stain Additional NO EPI, NO WBC, <SEE NOTE> 55 Laboratory test finding 04/25/2011 Transferrin 315 mg/dL 200-370 56 Iron/Tibc,%Sat Group 04/25/2011 Iron 33 g/dL Low 46-155 56 Total Iron Binding Cap. 370 g/dL 250-450 56 % Iron Saturation 8.9 % Low 13.0-45.0 56 Laboratory test finding 04/25/2011 Ferritin 8 ng/mL Low 22-415 57 CBC Electronic (Fma) 04/25/2011 WBC 5.5 3.6-9.6 RBC 4.64 3.90-5.70 Hemoglobin (Fma/CMC/CTX) 13.2 g/dL 12.1 - 17.2 Hematocrit (Fma/CMC/CTX) 39.4 % 36.1 - 50.3 Platelets 189 10^3/ul 150-400 Lymph% 25.2 20.5-51.1 Mixed% 4.0 Neutrophils % 70.8 Mean Corpuscular Vol 85 82.2-97.4 Mean Corpuscular Hemoglobin 28.4 27.6-33.3 Mean Corpuscular Hemo Concen 33.4 32.0-36.0 RDW 13.0 11.6-13.7 Mean Platelet Volume 8.8 6.5-11.0 Laboratory test finding 02/21/2011 Brain Natural Peptide 43.9 pg/mL <100 CBC Electronic ([facility]) 02/21/2011 WBC 5.5 3.6-9.6 RBC 4.78 3.90-5.70 Hemoglobin (Fma/CMC/CTX) 13.5 g/dL 12.1 - 17.2 Hematocrit (Fma/CMC/CTX) 40.4 % 36.1 - 50.3 Platelets 208 10^3/ul 150-400 Lymph% 28.5 20.5-51.1 Mixed% 3.9 Neutrophils % 67.6 Mean Corpuscular Vol 85 82.2-97.4 Mean Corpuscular Hemoglobin 28.3 27.6-33.3 Mean Corpuscular Hemo Concen 33.5 32.0-36.0 RDW 12.5 11.6-13.7 Mean Platelet Volume 9.2 6.5-11.0 Laboratory test finding 02/21/2011 Iron 43 g/dL Low 60-150 58 TSH 1.55 mIU/L 0.50-6.00 B12 278 pg/mL 230-1050 Ferritin 6 ng/mL Low 22-415 59 Comprehensive Metabolic Prof 02/21/2011 Albumin 4.5 g/dL 3.8-5.5 Alk. Phos. 61 U/L 22-95 Alt (SGPT) 16 U/L 10-40 Ast (Sgot) 15 U/L 5-34 BUN 17 mg/dL 6-26 Calcium 8.8 mg/dL 8.6-10.2 Chloride 101 mEq/L 94-112 Creatinine 1.4 mg/dL 0.6-1.4 Carbon Dioxide 24 mEq/L 21-32 Glucose 100 mg/dL 70-105 Sodium 141 mEq/L 134-149 Total Bilirubin 0.3 mg/dL 0.2-1.3 Total Protein 6.8 g/dL 6.3-8.1 Potassium 4.4 mEq/L 3.6-5.5 Globulin 2.3 g/dL 2.0-4.8 A/G Ratio 1.9 Calc 0.6-2.2 BUN/Creat Ratio 12.4 Calc 8.0-36.0 Surgical Pathology 09/14/2010 Surgical Pathology <SEE 60 NOTE> Lipid Profile 08/25/2010 Cholesterol 134 mg/dL 120-200 HDL 49 mg/dL 30-70 Triglycerides 77 mg/dL 30-200 HDL Risk Factor 2.8 CALC Low 4.2-7.0 LDL (Calculated) 70 CALC 0-129 VLDL (Calculated) 15 mg/dL 0-50 Comprehensive Metabolic Prof 08/25/2010 Albumin 4.4 g/dL 3.8-5.5 Alk. Phos. 61 U/L 22-95 Alt (SGPT) 21 U/L 10-40 Ast (Sgot) 17 U/L 5-34 BUN 16 mg/dL 6-26 Calcium 9.0 mg/dL 8.6-10.2 Chloride 102 mEq/L 94-112 Creatinine 1.2 mg/dL 0.6-1.4 Carbon Dioxide 26 mEq/L 21-32 Glucose 92 mg/dL 70-105 Sodium 140 mEq/L 134-149 Total Bilirubin 0.6 mg/dL 0.2-1.3 Total Protein 6.8 g/dL 6.3-8.1 Potassium 4.0 mEq/L 3.6-5.5 Globulin 2.4 g/dL 2.0-4.8 A/G Ratio 1.8 Calc 0.6-2.2 BUN/Creat Ratio 13.8 Calc 8.0-36.0 1 Normal Range 180 to 914 Indeterminate Range 145 to 180 Deficient Range <145 2 Normal Range 180 to 914 Indeterminate Range 145 to 180 Deficient Range <145 3 consistent w/ previous results 4 consistent w/ previous results 5 consistent w/ previous results 6 TOXASSURE SELECT 13 (MW) Specimen Alert Note: Urinary creatinine is low; ability to detect some drugs may be compromised. Interpret results with caution. Test Result Flag Units Drug Present and Declared for Prescription Verification Oxycodone 4690 EXPECTED ng/mg creat Oxymorphone 1280 EXPECTED ng/mg creat Noroxycodone 49210 EXPECTED ng/mg creat Sources of oxycodone include scheduled prescription medications. Oxymorphone and noroxycodone are expected metabolites of oxycodone. Oxymorphone is also available as a scheduled prescription medication. Fentanyl 40 EXPECTED ng/mg creat Norfentanyl 250 EXPECTED ng/mg creat Source of fentanyl is a scheduled prescription medication, including IV, patch, and transmucosal formulations. Norfentanyl is an expected metabolite of fentanyl. Drug Absent but Declared for Prescription Verification Lorazepam Not Detected UNEXPECTED ng/mg creat Test Result Flag Units Ref Range Creatinine 10 L mg/dL >=20 Declared Medications: The flagging and interpretation on this report are based on the following declared medications. Unexpected results may arise from inaccuracies in the declared medications. Note: The testing scope of this panel includes these medications: Fentanyl Lorazepam Oxycodone Note: The testing scope of this panel does not include following reported medications: Acetaminophen Bupropion Cyclobenzaprine Dicyclomine Diphenhydramine (Benadryl) Doxycycline Fluticasone Furosemide Gabapentin Nicotine Nisoldipine Pantoprazole Polyethylene Glycol (MiraLAX) Potassium Sennosides (Senna) Tadalafil (Cialis) For clinical consultation, please call . 7 The sample was received by the laboratory unlabeled. The Physician/ Clinician has authorized release of the results. The Physician/ Clinician agrees to assume responsibility for sample identification. AUTHORIZED BY RADHA ROJAS 02/24/17 8 SEE RESULT BELOW Name: EDIN CHRISTIANSEN : [address]: Juan Palm MD Acct: [id number] Unit: [id number] AGE: 56 Location: ENDO Re08/08/16 SEX: M Status: DEP REF SPEC: [id number] MARCIA: 08/08/[id number] [facility] DR: Juan Palm MD REQ: [id number] RECD: 08/08/16 STATUS: MAXIME SOLORIO DR: Jim Jolly MD _ ORDERED: LEVEL IV/2 THIS IS A CORRECTED REPORT 09/06/16-1116 Corrected Report FINAL DIAGNOSIS 1. 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 -- No evidence of dysplasia or malignancy. 2. Gastroesophageal junction, biopsy: -- Squamous and columnar mucosa with chronic inflammation. -- Negative for intestinal metaplasia and dysplasia. CLINICAL HISTORY No history given POST-OPERATIVE DIAGNOSIS Esophagus - Tripathi's, biopsied; stomach - anastomotic ulcer, biopsied GROSS DESCRIPTION 1. The specimen is received in formalin labeled, Biopsy Anastomosis Ulcer, and consists of a 0.3 x 0.3 x 0.2 cm roberts-pink polypoid soft tissue fragment, which is entirely submitted in one cassette. 2. The specimen is received in formalin labeled, Biopsy GE Junction, and consists of a 0.3 by up to 0.3 x 0.1 cm roberts-white irregular to polypoid soft tissue fragment, which is entirely submitted in one cassette. Signed (signature on file) Radha Chua MD 06/13 1142 END OF REPORT * ML=Testing performed at Main Lab DEPARTMENT OF PATHOLOGY, [address] [place] [address] Ronaldo Posada M.D. Director [facility] # [id number] SEE RESULT BELOW Name: EDIN CHRISTIANSEN : [address]: Cullen Zayas MD Acct: [id number] Unit: [id number] AGE: 56 Location: [facility] Re07/01/16 SEX: M Status: DEP ER SPEC: [id number] MARCIA: 07/01/16-1130 [facility] [address]: Katie Mccormick NP REQ: [id number] RECD: 07/01/16 STATUS: YULI SOLORIO DR: Cullen Jolly MD _ SOURCE: ABDOMEN SPDESC: ORDERED: Culture Stain COMMENTS: [id number] Procedure Result Reported Site Wound/Misc Gram Stain Final 07/01/16- 1428 ML 2+ Neutrophils No Organisms Seen Wound/Misc Culture Final 07/03/16- 0920 ML Organism 1 ENTEROBACTER CLOACAE Quantity 1+ Organism 2 NORMAL GILES Quantity 3+ 1. ENTEROBACTER CLOACAE M.I.C. RX --------- ------ Cefazolin >=64 R Cefepime <=1 S Ceftriaxone <=1 S Ciprofloxacin <=0.25 S Gentamicin <=1 S Levofloxacin <=0.12 S Meropenem <=0.25 S Nitrofurantoin 64 I Tetracycline 4 S Trimethoprim/Sulfamethoxazole <=20 S Amoxicillin/Clavulanic Acid >=32 R Aztreonam <=1 S CONTINUED ON NEXT PAGE * ML=Testing performed at Main Lab DEPARTMENT OF PATHOLOGY, [address] [place] [address] Ronaldo Posada M.D. Director [facility]AIL[facility] # [id number] Patient: EDIN CHRISTIANSEN [id number] (Continued) Specimen: [id number] Collected: 07/01/16 Received: 07/01/16 (Continued) Procedure Result Reported Site Wound/Misc Culture Final (continued) Contact the Microbiology Department for any additional antibiotic reporting. * ML - MAIN LAB ([facility]) . END OF REPORT * ML=Testing performed at Main Lab DEPARTMENT OF PATHOLOGY, [address] [place] [address] Ronaldo Posada M.D. Director [facility] # [id number] 11 Because ethnic data is not always readily available, this report includes an eGFR for both -Americans and non- Americans. The National Kidney Disease Education Program (NKDEP) does not endorse the use of the MDRD equation for patients that are not between the ages of 18 and 70, are , have extremes of body size, muscle mass, or nutritional status, or are non- or non-. According to the National Kidney Foundation, irrespective of diagnosis, the stage of the disease is based on the level of kidney function: Stage Description GFR(mL/min/1.73 m(2)) 1 Kidney damage with normal or decreased GFR 90 2 Kidney damage with mild decrease in GFR 60-89 3 Moderate decrease in GFR 30-59 4 Severe decrease in GFR 15-29 5 Kidney failure <15 (or dialysis) 12 SRC: URINE utainer 13 Source of Specimen: URINE 14 Source of Specimen: URINE 15 ~~1 POUR OFF SERUM FROM RED TOP REFRIGERATED 16 ADDITIONAL INFORMATION The thyroglobulin antibody testing method is an immunoenzymatic assay manufactured by [employer]. and performed on the [employer] DXI 800. Values obtained from different assay methods or kits may be different and cannot be used interchangeably. The results cannot be interpreted as absolute evidence for the presence or absence of malignant disease. Test Performed by: [place] [address] Net Repairer: Cesar Dodson II, M.D., Ph.D. 17 1 pour off tube from sst 18 1 pour off tube from sst 19 Test Performed by: [place] [address] Net Repairer: Jude Mary M.D. 20 1 red top poured off serum refridgerated~1 anjum top spun refrigerated 21 The homocysteine concentration is elevated in this sample. Increased homocysteine has been associated with an increased risk of cardiovascular disease, cerebrovascular disease, peripheral arterial disease and thrombosis. Vitamin deficiencies (B6, B12 and folic acid) may also cause an increased homocysteine concentration. Inborn errors of methionine metabolism are a potential, but less likely, possibility for hyperhomocysteinemia. Consider plasma or serum methylmalonic acid analysis to rule out vitamin B12 deficiency. REFERENCE VALUE <=13 (Fasting) Test Performed by: [place] [address] [place] [address] Net Repairer: Jude Mary M.D. 22 Test Performed by: [facility] [place] [address] Net Repairer: Jude Mary M.D. 23 RESULTS VERIFIED BY REPEAT ANALYSIS 24 RESULTS VERIFIED BY REPEAT ANALYSIS 25 Because ethnic data is not always readily available, this report includes an eGFR for both -Americans and non- Americans. The National Kidney Disease Education Program (NKDEP) does not endorse the use of the MDRD equation for patients that are not between the ages of 18 and 70, are , have extremes of body size, muscle mass, or nutritional status, or are non- or non-. According to the National Kidney Foundation, irrespective of diagnosis, the stage of the disease is based on the level of kidney function: Stage Description GFR(mL/min/1.73 m(2)) 1 Kidney damage with normal or decreased GFR 90 2 Kidney damage with mild decrease in GFR 60-89 3 Moderate decrease in GFR 30-59 4 Severe decrease in GFR 15-29 5 Kidney failure <15 (or dialysis) 26 Because ethnic data is not always readily available, this report includes an eGFR for both -Americans and non- Americans. The National Kidney Disease Education Program (NKDEP) does not endorse the use of the MDRD equation for patients that are not between the ages of 18 and 70, are , have extremes of body size, muscle mass, or nutritional status, or are non- or non-. According to the National Kidney Foundation, irrespective of diagnosis, the stage of the disease is based on the level of kidney function: Stage Description GFR(mL/min/1.73 m(2)) 1 Kidney damage with normal or decreased GFR 90 2 Kidney damage with mild decrease in GFR 60-89 3 Moderate decrease in GFR 30-59 4 Severe decrease in GFR 15-29 5 Kidney failure <15 (or dialysis) 27 Normal Range 180 to 914 Indeterminate Range 145 to 180 Deficient Range <145 28 Interpretation: 10-19 ng/mL (mild to moderate deficiency) REFERENCE VALUE 25-HYDROXY D TOTAL (D2+D3) Optimum levels in the healthy population are 20-50, patients with bone disease may benefit from higher levels within this range. Test Performed by: [place] [address] Net Repairer: Jude Mary M.D. 29 Test Performed by: [place] [address] Net Repairer: Mckenna Franklin, Ph.D. 30 Test Performed by: [place] [address] Net Repairer: Mckenna Franklin, Ph.D. 31 Normal Range 180 to 914 Indeterminate Range 145 to 180 Deficient Range <145 32 Test Performed by: [place] [address] Net Repairer: Mandeep Maddox III, M.D. 33 Test Performed by: [place] [address] Net Repairer: Mandeep Maddox III, M.D. 34 Therapeutic target for the treatment of diabetes Mellitus patients is <7% HBA1C, and in selective patients <6.0%.Please refer to [place] [employer] Diabetic care guidelines for further information. 35 GLU Fast 81 Col: 02/11/14 0820 GLU 2HR 64 Col: 02/11/14 1020 GTT Interp Col: 02/11/14 0820 Oral Glucose Tolerance Test (OGTT) Levels applicable except during . Sample drawn 2 hours after a 75-gram glucose drink. GLUCOSE LEVEL INDICATION Less than 140 mg/dL Normal glucose tolerance From 140 to 200 mg/dL Impaired glucose tolerance Over 200 mg/dL Diabetes (on more than one testing occasion) 36 Serum levels of PSA measured using the [employer] DXI Hybritech immunoassay should not be interpreted as absolute evidence of the presence or absence of disease. The PSA value should be used in conjunction with other pertinent clinical diagnostic procedures. The values obtained with different assay methods or kits cannot be used interchangeably. 37 Because ethnic data is not always readily available, this report includes an eGFR for both -Americans and non- Americans. The National Kidney Disease Education Program (NKDEP) does not endorse the use of the MDRD equation for patients that are not between the ages of 18 and 70, are , have extremes of body size, muscle mass, or nutritional status, or are non- or non-. According to the National Kidney Foundation, irrespective of diagnosis, the stage of the disease is based on the level of kidney function: Stage Description GFR(mL/min/1.73 m(2)) 1 Kidney damage with normal or decreased GFR 90 2 Kidney damage with mild decrease in GFR 60-89 3 Moderate decrease in GFR 30-59 4 Severe decrease in GFR 15-29 5 Kidney failure <15 (or dialysis) 38 HDL Interpretation: Undesirable: High Risk: Less than 40 mg/dL Desirable: Low Risk: Greater than 60 mg/dL 39 LDL Interpretation: Low Risk Optimal Level: LDL Less than 100 mg/dL Near or Above Optimal: LDL 100-129 mg/dL Borderline High Risk: LDL 130-159 mg/dL High Risk: LDL 160-189 mg/dL Very High Risk: LDL Greater than 189 mg/dL 40 split specimen ; 3 sst's 3 yellow tops; 3 lav tops; 5 citraded pour off frozen plasma 41 Greater than or equal to 211 is normal. . 42 Index Value: Specimen reactivity relative to the negative cutoff. 43 . Effective 06/25/2013: Please note a change in the reference range. 44 Result: Negative (no mutation found) Factor V Leiden is a specific mutation ([id number]) in the factor V gene that is associated with an increased risk of venous thrombosis. Factor V Leiden is more resistant to inactivation by activated protein C. As a result, factor V persists in the circulation leading to a mild hyper- coagulable state. The Leiden mutation accounts for 90% - 95% of APC resistance. Factor V Leiden has been reported in patients with deep vein thrombosis, pulmonary embolus, central retinal vein occlusion, cerebral sinus thrombosis and hepatic vein thrombosis. Other risk factors to be considered in the workup for venous thrombosis include the [id number] mutation in the factor II (prothrombin) gene, protein S and C deficiency, and antithrombin deficiencies. Anticardiolipin antibody and lupus anticoagulant analysis may be appropriate for certain patients, as well as homocysteine levels. Contact your local [facility] for information on how to order additional testing if desired. 45 Genetic counselors are available for health care providers to discuss results at [phone]). Methodology: DNA analysis of the Factor V gene was performed by allele- specific PCR followed by gel electrophoresis. The diagnostic sensitivity and specificity is >99% for both. Molecular- based testing is highly accurate, but as in any laboratory test, diagnostic errors may occur. All test results must be combined with clinical information for the most accurate interpretation. References: Champ Sandoval (1995). Clin Lab Med 16:169-186. Hammad Castillo, PhD Miguelina Hawkins, PhD Waleska Nolasco, PhD Nany Sharpe, PhD Sona Del Valle, PhD MD Luz Elena Santos MD, PhD S ERICK Fuentes, PhD 46 Negative: <15 Indeterminate: 15 - 20 Low-Med Positive: >20 - 80 High Positive: >80 47 Negative: <13 Indeterminate: 13 - 20 Low-Med Positive: >20 - 80 High Positive: >80 48 Negative: <12 Indeterminate: 12 - 20 Low-Med Positive: >20 - 80 High Positive: >80 49 >59 mL/min/1.73m2 50 >59 mL/min/1.73m2 Note: Persistent reduction for 3 months or more in an eGFR <60 mL/min/1.73m2 defines CKD. Patients with eGFR values >=60 mL/min/1.73m2 may also have CKD if evidence of persistent proteinuria is present. Additional information may be found at www.kidney.org/professionals/kdoqi. 51 Anion gap measurement may be of limited value in the presence of any alkalosis, especially in a combined acid base disorder. . 52 Because ethnic data is not always readily available, this report includes an eGFR for both -Americans and non- Americans. The National Kidney Disease Education Program (NKDEP) does not endorse the use of the MDRD equation for patients that are not between the ages of 18 and 70, are , have extremes of body size, muscle mass, or nutritional status, or are non- or non-. According to the National Kidney Foundation, irrespective of diagnosis, the stage of the disease is based on the level of kidney function: Stage Description GFR(mL/min/1.73 m(2)) 1 Kidney damage with normal or decreased GFR 90 2 Kidney damage with mild decrease in GFR 60-89 3 Moderate decrease in GFR 30-59 4 Severe decrease in GFR 15-29 5 Kidney failure <15 (or dialysis) 53 Recommended INR for Patients on Oral Anticoagulants Prophylaxis 2.0 - 3.0 Treatment of thrombosis 2.0 - 3.0 Prevention of embolism 2.0 - 3.0 Prevention of embolism from prosthetic heart valves 2.5 - 3.5 54 DIAGNOSIS,TREATMENT,AND THERAPY MUST BE BASED ON THE INR VALUE ALONE. 55 NO EPI, NO WBC, NO ORGANISMS SEEN 56 2 SSTS 57 RESULT AMARI'D 58 RESULT AMARI'D 59 RESULT AMARI'D 60 ---- RUN DATE: 09/16/10 [facility] NMI LIVE PAGE 1 RUN TIME: 1512 Specimen Inquiry RUN USER: INTERFACE -- Name: ЕЛЕНАEDIN Status: REG REF Re09/14/10 Age/Sex: 50/M Unit#: [id number] Location: [facility] : 62 -- Specimen: [id number] Spec Date: 09/14/[address]: Jaun rivera MD Spec Type: SURGICAL P Received: 09/15/10 Copies to: Jim villaseñor MD SPECIMEN TRANSVERSE COLON BIOPSY HISTORY POST-OP DIAGNOSIS: Divertics; polyp in transverse colon, biopsied CLINICAL INFORMATION: Diverticulitis GROSS DESCRIPTION The specimen is received in formalin labelled Edin Christiansen, Transverse Colon Biopsy, and consists of one fragment of yellow tissue measuring 0.4 x 0.2 x 0.2 cm. Submitted entirely, one cassette. DIAGNOSIS Transverse colon, biopsy: Fragment of large bowel mucosa with focal hyperplastic change. Signed Electronically by: ISABELLE BURT 09/16/10 1512 -- -- DEPARTMENT OF PATHOLOGY, [address] [place] [address] [facility] Permit #[id number] Ronaldo Posada M.D. Director Isabelle Burt M.D. Studio Musician Dir ambrose -- Procedures Date CPT Code Description Status 12/20/2017 00125 Brief Emotional/Behav Assessment W/ Scoring Doc Per Completed Standard Inst 09/06/2017 48417 Pulse Oximetry Completed 02/01/2016 Colonoscopy Completed 10/13/2014 67495 Neva-Noninvasive physiologic studies of upper or lower Completed extremity 01/27/2014 44152 Injection Subcutaneous Or Intramuscular Completed 11/21/2011 85979 Injection Subcutaneous Or Intramuscular Completed 06/01/2011 11958 Electrocardiogram Complete Completed 09/14/2010 Colonoscopy Completed Encounters Type Date Location Provider CPT E/M Dx Office Visit 12/20/2017 2:00p [facility] Office Radha Marcosbhart, [address] S31.102A [facility] R60.0 R40.0 Z98.84 I10 F34.1 Z23 Office Visit 09/21/2017 2:00p [facility] Office Radha Rojas, [facility] [address]35 R07.89 R04.2 Z71.6 R60.0 R40.0 G89.4 G47.00 D64.9 Office Visit 09/06/2017 2:30p [facility] Office Radha Marcosbhart, [facility] [address] R07.89 R04.2 Z71.6 F17.210 Office Visit 06/06/2017 3:30p [facility] Office Radha Marcosbhart, [facility] [address] R68.2 R60.0 R40.0 Z98.84 G89.4 I10 F41.9 K21.0 R51 Z23 Office Visit 02/22/2017 2:00p [facility] Office Radha Marcosbhart, [facility] [address]11[address] I10 G89.4 Z98.84 F34.1 R40.0 Z71.6 R60.0 Office Visit 09/14/2016 3:30p [facility] Office Radha Rojas, [facility] [address] R25.2 G89.4 F41.9 G47.00 R40.0 N39.46 Z98.84 Office Visit 07/13/2016 1:00p [facility] Sita García-C 56019 S31.109D Office Visit 07/06/2016 2:30p [facility] Office Sita García- [address]4320 Z23 S31.109A Office Visit 05/13/2016 11:00a [facility] Office Radha Rojas, [facility] 15169 F34.1 F41.9 Z71.6 G89.4 Z98.84 R15.2 R15.9 Office Visit 04/19/2016 4:15p [facility] Office Radha Rojas, [facility] 91271 Z72.0 G89.4 M43.06 R60.0 R15.2 Y93.84 F34.1 F41.9 Office Visit 02/17/2016 3:00p [facility] Office Radha Rojas, [facility] [address] G89.4 M43.06 Z72.0 R48.8 F17.218 Z71.6 Office Visit 01/29/2016 1:30p [facility] Office Radha Rojas, [facility] 11448 G89.4 M43.06 I10 R60.0 Z72.0 K59.01 Office Visit 12/16/2015 2:00p [facility] Office Radha Rojas, [facility] 18879 R60.0 G89.4 Office Visit 12/10/2015 3:30p Main Office Jim Jolly M.D. 87695 R60.0 Office Visit 11/19/2015 9:00a [facility] Office Katie hTomas [facility] 518[address] K64.1 D17.0 R60.0 Office Visit 10/05/2015 3:50p [facility] Office Jim Jolly M.D. 75329 M43.06 G89.4 I10 K21.9 K58.9 I71.2 R31.2 Office Visit 07/03/2015 10:00a [facility] Office Radha Rojas, [facility] 41275 N63 L29.8 Office Visit 06/22/2015 10:30a [facility] Office Jim Jolly M.D. 71249 Z01.818 M43.06 I10 J30.89 K21.9 F41.1 K58.9 R31.2 I71.2 Office Visit 06/10/2015 10:30a [facility] Office Radha Rojas, [facility] 04151 M51.36 R23.3 I10 E66.09 R39.81 Office Visit 05/13/2015 11:15a [facility] Office Radha Rojas, [facility] 89999 722.52 724.5 401.1 782.7 Office Visit 10/20/2014 11:00a [facility] Office Jim Jolly M.D. 26137 242.90 782.3 747.21 Office Visit 09/30/2014 8:00a [facility] Office Jim Jolly M.D. 92330 477.8 782.3 722.52 333.94 794.5 Office Visit 08/15/2014 11:30a [facility] Office Radha Rojas, [facility] 66220 782.1 724.4 Office Visit 03/25/2014 10:20a [facility] Office Jim Jolly M.D. 08592 782.1 724.4 Office Visit 01/27/2014 8:50a [facility] Office Jmi Jolly M.D. 32671 724.5 782.1 281.1 251.2 Office Visit 12/25/2013 4:00p [facility] Office Radha Crystal, [facility] 11688 691.8 302.72 682.8 Office Visit 10/28/2013 2:30p [facility] Office Jim Jolly M.D. 45318 V72.83 366.9 401.1 564.1 300.02 286.3 280.1 530.81 Office Visit 07/31/2013 8:00a [facility] Office Jim Jolly M.D. 47526 V70.0 V76.44 V76.51 401.1 564.1 300.02 280.1 296.31 V76.41 Office Visit 07/10/2013 10:30a [facility] Office Radha CrystalANDRÉS de la rosa [address] 780.79 V04.81 Office Visit 11/21/2011 2:40p [facility] Office Jim Jolly M.D. 66726 280.1 401.1 564.1 300.02 785.1 281.9 Office Visit 06/01/2011 2:20p [facility] Office Jim Jolly M.D. 90245 785.1 280.1 296.31 Office Visit 04/25/2011 2:50p [facility] Office Jim Jolly M.D. 52560 592.1 280.1 780.97 Office Visit 02/21/2011 4:30p [facility] Office Jim Jolly M.D. 71216 782.3 401.1 286.3 296.31 564.1 727.49 333.94 Office Visit 08/25/2010 9:20a [facility] Office Jim Jolly M.D. 60731 V70.0 401.1 443.0 296.31 300.02 564.1 286.3 V12.71 780.59 V17.3 Office Visit 08/11/2010 12:00p [facility] Jim Jolly M.D. 27961 296.31 300.02 401.1 V12.71 780.59 564.1 V18.0 V17.3 V04.81 Plan of Care Future Appointment(s):07/11/2018 3:50 pm - Shelley Barillas M.D. at [facility] Lmzeph7404/11/2018 1:30 pm - Shelley Barillas M.D. at [facility] Yugrwj9003/28/2018 - Radha Rojas, FNPI10 Essential (primary) hypertensionComments:Take the furosemide daily for 2 weeks, return here for blood pressure check with a nurse in 2 weeksWe will get an echoR07.89 Other chest painR51 DumrlyucM33.4 Chronic pain syndromeAllComments:~B_~U_Medication Management~b_~u_ Patient Understands medications he 's taking? Yes No Are there Barriers to Adherence? Yes No Has the patient been asked about herbal supplements and therapies, and OTC meds? Yes No
[2018-04-11 15:43] LABS: EGFR Non-African American 77.9 (>60)
[2018-04-11] MEDS ORDERED: Iohexol 350* (CONTRAST) 500 ML MDV IV ONE ×2 (15:57→16:17)
--- NOTE | 2018-04-11 16:39 | ED ---
HPI Chest Pain - HPI Summary HPI Summary: This is scribe Timothy Templeton documenting for attending Nathaniel De Leon M.D. Patient is a 58 y/o M w/ c/o intermittent chest pain and tightness left to center of chest onsetting a week ago. Pain is noted to radiate to jaw and into left shoulder and arm occasionally. He denies presence of pain/tightness in the room. On triage, pain was rated 6/10 and nothing is noted to aggravate/ alleviate Sx. He states he is being treated for aortic aneurysm caught between his lungs and heart. Paitient notes SOB, arrhythmia, is on BP meds, and has had cardiac stress test two years ago. On triage, ROSADO is reported. No cardiac surgeries are reported in the room. Patient was meant to have an ECHO test soon. Home medications and allergies are reviewed. 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 He denies taking aspirin today. I, Dr. De Leon, personally performed the services described in this documentation as scribed in my presence and it is both accurate and complete. - History of Current Complaint Chief Complaint: EDChestPainROMI Time Seen by Provider: 04/11/18 14:37 Hx Obtained From: Patient Onset/Duration: Started Weeks Ago - onset a week ago, Resolved - in room, denies presence of chest pain/tightness Timing: Intermittent - Sx are reported to come and go Current Severity: Moderate - on triage, pain is rated 6/10 Pain Intensity: 6 Pain Scale Used: 0-10 Numeric - 6/10 Chest Pain Location: Discrete at: - left of center chest Chest Pain Radiates: Yes Chest Pain Radiates To:: Shoulder - left, Arm - left, Jaw Character: Tightness Aggravating Factor(s): Nothing Alleviating Factor(s): Nothing Associated Signs and Symptoms: Positive: Chest Pain, Headaches, Shortness of Breath, Other: - arrhythmia, aortic aneurysm - Allergy/Home Medications Allergies/Adverse Reactions: Allergies Allergy/AdvReac Type Severity Reaction Status Date / Time erythromycin base Allergy Blisters Verified 04/11/18 14:53 Home Medications: Home Medications Oxycodone TAB(NF) [Oxycodone HCl 10 MG] 10 mg PO Q4HR PRN 04/11/18 [History Confirmed 04/11/18] PMH/Surg Hx/FS Hx/Imm Hx Endocrine/Hematology History: Reports: Hx Anemia - AT TIMES-IRON INFUSIONS- NEEDED Denies: Hx Diabetes Cardiovascular History: Reports: Hx Hypertension Denies: Hx Pacemaker/ICD Respiratory History: Denies: Hx Asthma, Hx Chronic Obstructive Pulmonary Disease (COPD) GI History: Reports: Hx Gastroesophageal Reflux Disease - IN THE PAST, Hx Hiatal Hernia, Hx Ulcer - ON PROTONIX Comment Only: Other GI Disorders - ON PROTONIX, HX OF DAE EN Y History: Reports: Hx Kidney Stones - LEFT Denies: Hx Dialysis, Hx Renal Disease Sensory History: Reports: Hx Contacts or Glasses - GLASSES Denies: Hx Hearing Aid Opthamlomology History: Reports: Hx Contacts or Glasses - GLASSES Psychiatric History: Reports: Hx Anxiety - PRN MEDICATION FOR Denies: Hx Panic Disorder - Surgical History Surgery Procedure, Year, and Place: lsp surgery 05/2014,panniculectomy 03/05/2013 ; pt reopened 03/12/13 for drainage tube failure and infection10/2007--bariatric sURGERY,BILAT LOW LEG VEIN SURGERY(NO IMPLANTS), NISAN FUNDOPLICATION INGUINAL HERNIA REPAIR,CATARACT 10/2013,LAP CATRACHO/HERNIA 2008,BACK SURGERY 2013 ; Spinal Fusion Sep 17, 2015 [facility] Hx Anesthesia Reactions: No - Immunization History Immunizations Up to Date: Yes Infectious Disease History: No Infectious Disease History: Denies: Traveled Outside the [place] in Last 30 Days - Family History Known Family History: Positive: Cardiac Disease, Hypertension - Social History Alcohol Use: None Alcohol Amount: 1 DRINK/MONTH Substance Use Type: Reports: None Substance Use Comment - Amount & Last Used: lorazapam and oxycodone Smoking Status (MU): Current Every Day Smoker Type: Cigarettes Amount Used/How Often: 1/2 - 1PPD Length of Time of Smoking/Using Tobacco: 4 YRS Have You Smoked in the Last Year: Yes Review of Systems Negative: Fever, Chills Negative: Erythema Negative: Sore Throat Positive: Chest Pain - tightness, Other - arrhythmia Positive: Shortness Of Breath. Negative: Cough Negative: Abdominal Pain, Vomiting, Nausea Negative: dysuria, hematuria Negative: Myalgia, Edema Negative: Rash Neurological: Other - NEGATIVE: dizziness Positive: Headache Physical Exam - Summary Physical Exam Summary: Constitutional: Well-developed, Well-nourished, Alert. (-) Distressed Skin: Warm, Dry HENT: Normocephalic; Atraumatic Eyes: Conjunctiva normal Neck: Musculoskeletal ROM normal neck. (-) JVD, (-) Stridor, (-) Tracheal deviation Cardio: Rhythm regular, rate normal, Heart sounds normal; Intact distal pulses; The pedal pulses are 2+ and symmetric. Radial pulses are 2+ and symmetric. (-) Murmur Pulmonary/Chest wall: Effort normal. (-) Respiratory distress, (-) Wheezes, (-) Rales Abd: Soft, (-) epigastric tenderness, (-) Distension, (-) Guarding, (-) Rebound Musculoskeletal: (+) 2+ pitting edema Lymph: (-) Cervical adenopathy Neuro: Alert, Oriented x3 Psych: Mood and affect Normal Triage Information Reviewed: Yes Vital Signs On Initial Exam: Initial Vitals Temp Pulse Resp BP Pulse Ox 98.3 F 68 20 177/100 96 04/11/18 14:29 04/11/18 14:29 04/11/18 14:29 04/11/18 14:29 04/11/18 14:29 Vital Signs Reviewed: Yes Diagnostics - Vital Signs Vital Signs Temp Pulse Resp BP Pulse Ox 04/11/18 16:00 60 12 95 04/11/18 15:56 61 16 161/88 95 04/11/18 15:26 11 145/88 04/11/18 15:00 10 04/11/18 14:56 13 173/99 04/11/18 14:48 13 04/11/18 14:29 98.3 F 68 20 177/100 96 - Laboratory Lab Results: Lab Results 04/11/18 04/11/18 04/11/18 Range/Units 14:51 14:51 14:51 WBC 4.1 (3.5-10.8) 10^3/ul RBC 4.30 (4.00-5.40) 10^6/ul Hgb 12.9 L (14.0-18.0) g/dl Hct 39 L (42-52) % MCV 91 (80-94) fL MCH 30 (27-31) pg MCHC 33 (31-36) g/dl RDW 14 (10.5-15) % Plt Count 199 (150-450) 10^3/ul MPV 8.1 (7.4-10.4) um3 Neut % (Auto) 51.7 (38-83) % Lymph % (Auto) 21.8 L (25-47) % Perkins % (Auto) 7.8 H (0-7) % Eos % (Auto) 17.4 H (0-6) % Baso % (Auto) 1.3 (0-2) % Absolute Neuts (auto) 2.1 (1.5-7.7) 10^3/ul Absolute Lymphs (auto) 0.9 L (1.0-4.8) 10^3/ul Absolute Monos (auto) 0.3 (0-0.8) 10^3/ul Absolute Eos (auto) 0.7 H (0-0.6) 10^3/ul Absolute Basos (auto) 0.1 (0-0.2) 10^3/ul Absolute Nucleated RBC 0 10^3/ul Nucleated RBC % 0.1 Sodium 139 (135-145) mmol/L Potassium 4.2 (3.5-5.0) mmol/L Chloride 106 (101-111) mmol/L Carbon Dioxide 28 (22-32) mmol/L Anion Gap 5 (2-11) mmol/L BUN 11 (6-24) mg/dL Creatinine 0.99 (0.67-1.17) mg/dL Est GFR ( Amer) 94.3 (>60) Est GFR (Non-Af Amer) 77.9 (>60) BUN/Creatinine Ratio 11.1 (8-20) Glucose 90 (70-100) mg/dL Lactic Acid 0.5 (0.5-2.0) mmol/L Calcium 8.1 L (8.6-10.3) mg/dL Total Bilirubin 0.40 (0.2-1.0) mg/dL AST 11 L (13-39) U/L ALT 9 (7-52) U/L Alkaline Phosphatase 83 (34-104) U/L Troponin I 0.00 (<0.04) ng/mL Total Protein 6.1 L (6.4-8.9) g/dL Albumin 3.5 (3.2-5.2) g/dL Globulin 2.6 (2-4) g/dL Albumin/Globulin Ratio 1.3 (1-3) Result Diagrams: 04/11/18 14:51 04/11/18 14:51 Lab Statement: Any lab studies that have been ordered have been reviewed, and results considered in the medical decision making process. - Radiology CXR Xray Interpretation: Positive (See Comments) Radiology Interpretation Completed By: Radiologist - Patchy left basilar atelectasis versus early consolidation. This report was reviewed by ED physician. - CT CTA abd/pel/chest CT Interpretation: No Acute Changes CT Interpretation Completed By: Radiologist - No active CT findings. No evidence of aneurysm or dissection. This report was reviewed by ED physician. - EKG 1522 Cardiac Rate: NL - Rate of 61 BPM EKG Rhythm: Sinus Rhythm EKG Interpretation: Normal EKG Re-Evaluation - Re-Evaluation First Eval Re-Evaluation Time: 17:37 Comment: Informed of decision to admit for further work up. Patient is agreeable with plan. Chest Pain Course/Dx - Course Assessment/Plan: Patient is a 58 y/o M w/ c/o intermittent chest pain and tightness left to center of chest onsetting a week ago. Pain is noted to radiate to jaw and into left shoulder and arm occasionally. He denies presence of pain/tightness in the room. On triage, pain was rated 6/10. He states he is being treated for aortic aneurysm caught between his lungs and heart. Terra notes SOB, arrhythmia, is on BP meds, and has had cardiac stress test two years ago. On triage, ROSADO is reported. No cardiac surgeries are reported in the room. Patient was meant to have an ECHO test soon. 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 He denies taking aspirin today. On physical, patient is noted to have 2+ pitting edema. During ED course, patient was given cyclobenzaprine Hcl 10 mg PO ED ONCE ONE and Gabapentin 300 mg PO ED ONCE ONE. CXR showed Patchy left basilar atelectasis versus early consolidation. EKG and CT chest/abd/pel were normal. During ED course, patient was given cyclobenzaprine Hcl 10 mg PO ED ONCE ONE and Gabapentin 300 mg PO ED ONCE ONE. CXR showed Patchy left basilar atelectasis versus early consolidation. EKG and CT chest/abd/pel were normal. Labs showed 12.9 Hgb, 39 Hct, 21.8, calcium 8.1, AST 11, total protein 6.1. Patient's case was discussed with Dr. Graf at 17: 36. She accepts patient for admission. Patient was re-evaluated after. Decision to admit was discussed and patient is agreeable with plan. Pt diagnosed with exertional chest pain. - Diagnoses Provider Diagnoses: Exertional chest pain - Provider Notifications Discussed Care Of Patient With: Lori Graf Time Discussed With Above Provider: 17:36 Instructed by Provider To: Other - Patient's case discussed with Dr. Graf. She agrees to accept for admission to [facility]. Discharge - Sign-Out/Discharge Documenting (check all that apply): Patient Departure - admit - Discharge Plan Condition: Fair Disposition: ADMITTED TO [facility]
--- NOTE | 2018-04-11 17:31 | RAD ---
INDICATION: Back pain. Evaluate for aneurysm or dissection.. COMPARISON: CT abdomen pelvis February 26, 2016 TECHNIQUE: Axial source images were obtained from the thoracic inlet to the symphysis pubis following administration of 100 mL Omnipaque [address] angiographic technique. No oral contrast was administered. Coronal and sagittal reconstructed images were acquired. CHEST FINDINGS: Neck/thyroid: The visualized neck to include the thyroid appear normal. Chest wall: There are no acute abnormalities of the bony thorax or chest wall. There is no supraclavicular, infraclavicular, or axillary lymphadenopathy. Lungs : There are no pulmonary parenchymal masses or infiltrates. The pulmonary interstitium appears normal. There are no endobronchial lesions. Cardiomediastinal structures: The heart is normal in size. There is no pericardial effusion. There is a prominent left-sided pericardial fat pad There is no evidence of aortic aneurysm or dissection. The pulmonary vessels appear normal. There is no mediastinal or hilar adenopathy. The esophagus appears normal. Pleura : There are no pleural-based masses or effusions. ABDOMINAL/PELVIC FINDINGS: Liver: The early arterial phase imaging the liver is normal. Gallbladder: Cholecystectomy. Spleen: The spleen is normal in size. There are no masses. Pancreas: There is no evidence of pancreatic mass or ductal dilatation. The pancreas partially fatty replaced Adrenal glands: There is no evidence of adrenal mass. Kidneys: The kidneys are normal in size and position. There are prompt nephrograms and there is prompt excretion bilaterally. There are no renal parenchymal masses. There is is a nonobstructive, 2 mm, left renal stone. Adenopathy: There is no evidence of adenopathy by size criteria. Fluid collections: There are no free or localized fluid collections. Vessels:The aorta and IVC appear normal GI tract: Limited evaluation without oral contrast. No significant CT abnormalities of the upper lower GI tract. Pelvic organs: The prostate and seminal vesicles appear normal Bladder: There are no bladder masses. Abdominal and pelvic soft tissues: The extraperitoneal abdominal and pelvic soft tissues appear normal.. Osseous structures: There is posterior lumbar fusion at L5-S1 with a stable anterolisthesis. IMPRESSION: NO ACUTE CT FINDINGS. NO CT EVIDENCE OF ANEURYSM OR DISSECTION
[2018-04-11] MEDS ORDERED: Gabapentin CAP(*) 300 MG PO ONE (17:45)
[2018-04-11] MEDS ORDERED: Cyclobenzaprine TAB* 10 MG PO ONE (17:45)
[2018-04-11] MEDS ORDERED: LORazepam TAB(*) 0.5 MG PO PRN (18:52)
[2018-04-11] MEDS ORDERED: Furosemide IV* 10 MG/ML VIAL (40 MG) IV ONE (18:52)
[2018-04-11] MEDS ORDERED: NIFEdipine ER TAB* 30 MG PO ONE (19:06)
[2018-04-11] MEDS: oxyCODONE TAB* 5 MG TAB PO PRN (20:04)
[2018-04-11] MEDS ORDERED: Gabapentin CAP(*) 300 MG PO SCH (21:00)
[2018-04-11] MEDS: Morphine TAB Extended Release (*) 30 MG TAB.ER PO SCH (21:37)
[2018-04-11] MEDS: Heparin VIAL(*) 5000 UNITS/ML VIAL (FIVE THOUSAND) SUBCUT SCH (21:39)
--- NOTE | 2018-04-11 21:49 | HP ---
CC: Dr. Jolly; Dr. Barillas; Dr. Porter; Dr. Kingsley; Dr. Galarza; Dr. Shah; Dr. Santillan* HISTORY AND PHYSICAL: DATE OF ADMISSION: 04/11/18 PRIMARY CARE PROVIDERS: Dr. Jolly and Dr. Barillas. CHIEF COMPLAINT: Shortness of breath and chest pain. HISTORY OF PRESENT ILLNESS: Tony Whittaker is a 58-year-old male with a history of morbid obesity, obstructive sleep apnea, lymphedema, which is chronic, who has been having chest pain and shortness of breath for 2 weeks. In fact, he went to see his primary care provider and saw nurse practitioner on 03/28/18, who recommended for the patient to be started on Lasix on a daily basis where previously he took p.r.n., he had not taken for several months. The patient stated that he did not follow those instructions because he did not want to urinate that often. Instead, he went with his to a [facility] in [place] and developed another episode of shortness of breath. At that point, ambulance was summoned and it was recommended for the patient to go to [facility], which the patient and his declined. They went upstairs to the hotel room in the [facility] and "the patient coughed down" and the shortness of breath resolved. The patient's chest pain had been ongoing in the left side of the chest. It happens momentarily for seconds. It is not sharp, radiates to the left jaw and is not associated with shortness of breath. There are no aggravating or alleviating factors in the chest pain since they occur very briefly. In addition to that, the patient started noticing episodes of shortness of breath, they were not positional, not related to time of day or exercise. [place] He denies any worsening exercise intolerance, although his exercise tolerance at baseline is very poor and he ambulates with a cane. The patient stated that he gained weight approximately 10 pounds in the past 6 months. He is going to be admitted with diagnosis of chest pain. He is also going to be treated for CHF. PAST MEDICAL HISTORY: 1. Morbid obesity. 2. Obstructive sleep apnea. 3. Hypertension that had been fairly uncontrolled. 4. History of chronic pain, on chronic narcotics. 5. History of 2 back laminectomies in 2014 and 2015. 6. History of anemia. 7. History of lymphedema bilaterally. 8. History of irritable bowel syndrome. 9. History of hypertension. 10. History of anxiety. 11. Depression. 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 13. Hyperlipidemia. 14. History of panniculectomy and subsequent development of cellulitis in 2011. 15. Cholecystectomy in 2008. 16. History of surgery on his varicose veins in his legs in the past. 17. History of "arrhythmia" followed by Dr. Santillan. 18. History of negative cardiac catheterization in 2007. 19. History of Ana fundoplication. 20. History of bariatric surgery. MEDICATIONS: Include: 1. Oxycodone 10 mg every 4 hours p.r.n. 2. Wellbutrin 200 mg daily. 3. Cialis 10 mg on a p.r.n. basis. 4. Senna 2 tablets at q.p.m. 5. Potassium chloride 10 mEq b.i.d. p.r.n. with Lasix that the patient was supposed to take 40 mg b.i.d. for the past 2 weeks as instructed, but not taken. 6. Protonix 80 mg b.i.d. 7. Procardia XL 30 mg daily. 8. Embeda, which is morphine sulfate with naltrexone combination 30/1.2 mg 1 capsule. 9. Citrucel 1 teaspoon daily. 10. Lorazepam 0.5 mg 1 to 2 tablets t.i.d. p.r.n. 11. Neurontin 900 mg at bedtime and 600 mg 3 times a day. 12. Flonase 2 sprays both nostrils daily. 13. Dicyclomine 2 tablets at bedtime p.r.n. 14. Acetaminophen 500 mg b.i.d. p.r.n. ALLERGIES: ERYTHROMYCIN. FAMILY HISTORY: Positive for father who had a cardiac arrest in his 50s, survived and lived to his 80s, after coronary artery bypass grafting in his 60s and of MRSA lung infection. The patient's mother had a history of renal cancer and breast cancer and of consequences of both in her 60s. SOCIAL HISTORY: The patient smokes a pack per day and he has been smoking ever since he turned 13. He denies any alcohol or drug use. He lives with his who is his surrogate. 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 REVIEW OF SYSTEMS: Positive for bilateral lower extremity edema, worsened for the past several weeks. Positive for weight gain of approximately 10 to 15 pounds. Positive for chronic exercise intolerance. The patient walks with a cane and his exercise tolerance is very poor at baseline. Positive for chest pain and shortness of breath as mentioned above. Positive for right lateral thigh small wound that had been ongoing for approximately 2 weeks that occurred after the patient hit his leg while sitting on a toilet seat on the toilet paper [place]. They have been applying Silvadene to it. The patient also has chronic back pain and involuntary bilateral lower extremity movements, for which he had been evaluated by Dr. Shah recently from Neurology. PHYSICAL EXAMINATION GENERAL: The patient is a very pleasant 58-year-old male, who is in no acute distress. Alert, awake, oriented x3. VITAL SIGNS: Blood pressure of 177/99, heart rate of 54 and regular, respiratory rate 12, oxygen saturation 98% on room air, temperature of 98.3. BMI of 43. HEENT: Head: Atraumatic, normocephalic. Eyes: Pupils are equal, reactive to light and accommodation. Oropharynx clear. Mucosa moist. NECK: Supple. No JVD. No bruits bilaterally RESPIRATORY: Crackles in bilateral lower to mid lungs. CARDIOVASCULAR: Regular rate and rhythm. No murmur. ABDOMEN: Very obese, soft, nontender. Bowel sounds present in all 4 quadrants. EXTREMITIES: There is bilateral lower extremity lymphedema noted, nonpitting. Pulses are +2 bilaterally. There is no clubbing, cyanosis. There are venous stasis changes and discoloration of bilateral lower extremities noted. NEURO EVALUATION: Speech is clear. Cranial nerves II through XII grossly intact. Motor strength is 5/5 bilaterally. SKIN: On evaluation of the skin, there is brown discoloration of venous stasis changes to the bilateral lower extremities. The patient has an open wound of approximately 3 cm linear somewhat and adjacent to that a smaller wound, both of them with their bottom covered with slough, rather wet, draining serous material. They are approximately 0.5 cm and 0.5 cm deep each. There is some chronic erythema noted in the area, but there is no cellulitis. DIAGNOSTIC STUDIES/LAB DATA: White blood cell count of 4.1, hemoglobin 12.9, hematocrit of 39, and platelets of 199. Sodium was 139, potassium 4.2, chloride 106, carbon dioxide 28, BUN 11, creatinine 0.99. Liver function tests are unremarkable. Troponin of 0, that was obtained twice already. Lactic acid of 0.9. CT angiogram of the chest, abdomen, and pelvis showed no acute CT findings, no evidence of aneurysm or dissection. There was also no PE noted. The patient's EKG showed normal sinus rhythm with a heart rate of 61 beats per minute with normal axis and no ST changes. ASSESSMENT AND PLAN: 1. In regards to the patient's chest pain, shortness of breath, I suspect those are symptoms of congestive heart failure. The patient has uncontrolled blood pressure for quite some time and he neglected to take his Lasix as directed in the past 2 weeks. He is going to be treated with 1 dose of intravenous Lasix tonight. Daily weights are going to be obtained as well as intake and output summaries. I will place the patient in for pharmacologic stress test since he is not physically able to walk on a treadmill. Of note, I found the patient's cardiac catheterization that was done in 2011, which shows no significant stenotic coronary artery disease with mid to distal area of the left anterior descending artery that was found to be intramyocardial with no significant systolic milking of the vessel producing significant systolic obstruction. 2. In regards to the patient's congestive heart failure, as mentioned above Lasix is going to be instituted. The patient is also going to be placed on Lasix p.o. in the morning. An echocardiogram is going to be obtained to evaluate systolic function. 3. In regards to the patient's right leg wound, a Wound Care consult is going to be requested. 4. For the patient's hypertension, I will increase his nifedipine to 60 mg daily and add on another dose of 30 mg tonight. 5. For DVT prophylaxis, the patient is a high risk and heparin subcutaneously is going to be provided. 6. For obstructive sleep apnea, CPAP is going to be provided. 7. The patient's code status is full. His surrogate is his as mentioned above. TIME SPENT: Approximately 75 minutes was spent on the admission of this patient , more than half that time was spent [id number] with the patient during the interview and physical exam. [id number]/[facility] #: [id number] [facility]
[2018-04-11] MEDS ORDERED: Cyclobenzaprine TAB* 10 MG PO PRN (22:27)
[2018-04-11] MEDS ORDERED: Dicyclomine CAP* 10 MG PO PRN (22:29)
[2018-04-11] MEDS: Acetaminophen TAB* 325 MG PO PRN (22:50)
[2018-04-11] MEDS ORDERED: Senna TAB PO SCH (23:00)
[2018-04-11] MEDS ORDERED: Docusate CAP* 100 MG PO SCH (23:00)
[2018-04-12] MEDS: oxyCODONE TAB* 5 MG TAB PO PRN (04:32)
[2018-04-12] MEDS: Heparin VIAL(*) 5000 UNITS/ML VIAL (FIVE THOUSAND) SUBCUT SCH ×2 (05:57→14:31)
[2018-04-12] MEDS ORDERED: Omeprazole CAP* 20 MG PO SCH (06:00)
[2018-04-12 06:42] LABS: EGFR Non-African American 70.5 (>60)
[2018-04-12] MEDS ORDERED: Regadenoson* 0.4 MG/5 ML SYRINGE ONE (07:49)
[2018-04-12] MEDS ORDERED: Aminophylline IV* 25 MG/ML 10 ML VIAL ONE (08:11)
[2018-04-12] MEDS ORDERED: buPROPion TAB* 100 MG PO SCH (09:00)
[2018-04-12] MEDS ORDERED: Fluticasone NASAL SPRAY 50MCG* 16 gm SPRAY BTL BOTH NARES SCH (09:00)
[2018-04-12] MEDS ORDERED: NIFEdipine ER TAB* 30 MG PO SCH (09:00)
[2018-04-12] MEDS ORDERED: NIFEdipine ER TAB* 60 MG PO SCH (09:00)
[2018-04-12] MEDS ORDERED: Furosemide TAB* 40 MG PO SCH (09:00)
[2018-04-12] MEDS ORDERED: Perflutren Lipid Microsphere* 3 ML VIAL ONE (09:49)
[2018-04-12] MEDS: Morphine TAB Extended Release (*) 30 MG TAB.ER PO SCH (10:55)
[2018-04-12] MEDS: Gabapentin CAP(*) 300 MG PO SCH ×2 (11:33→14:31)
--- NOTE | 2018-04-12 11:34 | ECHO ---
Patient: EDIN CHRISTIANSEN [facility] Rec#: [id number] : 1960 Date: 04/12/2018 Age: 58y Height: 187.96 cm / 74.0 in Weight: 143.79 kg / 316.9 lbs Sex: M BSA: 2.64 Room#: 433 Admit Date#: 04/11/2018 Type: Inpatient Referring: Lori Graf MD Reading: Reji Champagne DO Reading: Reji Champagne DO Leaf Conditioner: Penelope Sosa RDCS CC: Narcisa Barillas Transthoracic Echocardiogram Indication: CP BP: 176/97 HR: 83 Rhythm: NSR Findings History: Morbid obesity s/p gastric bypass,HTN,HLD,Tripathi's esophagus,anxiety-depression,+ family history. Technical Comments: The study is technically limited due to patient body habitus. Completed at 1045. Definity used to enhance images. Left Ventricle: The left ventricular chamber size is normal. Mild concentric left ventricular hypertrophy is observed. Global left ventricular wall motion and contractility are within normal limits. There is normal left ventricular systolic function. The estimated ejection fraction is 55-60%. There is no consistent Doppler evidence of clinically significant diastolic dysfunction. Left Atrium: The left atrial chamber size is normal. Right Ventricle: The right ventricular chamber size and systolic function are within normal limits. Right Atrium: The right atrial cavity size is normal. Aortic Valve: The aortic valve structure is not well visualized. There is no evidence of aortic regurgitation. There is no evidence of aortic stenosis. Mitral Valve: The mitral valve leaflets appear normal. There is no evidence of mitral regurgitation. There is no evidence of mitral stenosis. Tricuspid Valve: The tricuspid valve leaflets are normal. There is no evidence of tricuspid valve regurgitation. Unable to estimate the right ventricular systolic pressure. There is no tricuspid stenosis. Pulmonic Valve: The pulmonic valve structure is not well visualized. Pericardium: There is no significant pericardial effusion. Aorta: The ascending aorta is not well visualized. There is no dilatation of the aortic arch. There is mild dilatation of the aortic root. Pulmonary Artery: The main pulmonary artery is not well visualized. Venous: The venous system is not well visualized. Contrast: Definity was used to optimize study. A total of 5.5ml used. Intravenous contrast was used to enhance endocardial border definition. Conclusions The left ventricular chamber size is normal. Mild concentric left ventricular hypertrophy is observed. Global left ventricular wall motion and contractility are within normal limits. There is normal left ventricular systolic function. The estimated ejection fraction is 55-60%. The left atrial chamber size is normal. The right ventricular chamber size and systolic function are within normal limits. Unable to estimate the right ventricular systolic pressure. The pulmonic valve structure is not well visualized. Otherwise no significant valvular abnormalities noted There is mild dilatation of the aortic root. The ascending aorta is not well visualized. Definity was used to optimize study. Compared to prior study from 05/2015, no significant changes noted Measurements Name Value Normal Range RVDdMajor (2D) 3.2 cm (2.2 - 4.4) RAd ISD 4CH 4.2 cm (3.4 - 4.9) RA (A4C)W 3.2 cm (2.9 - 4.6) IVSd (2D) 1.1 cm (0.6 - 1) LVPWd (2D) 1.1 cm (0.6 - 1) LVIDd (2D) 4.4 cm (3.6 - 5.4) LVIDs (2D) 3.9 cm - LV FS (2D) 11 % (25 - 45) Aortic Annulus 2.3 cm (1.4 - 2.6) Ao root diameter (2D) 3.8 cm (2.1 - 3.5) Aortic arch 2.9 cm (1.8 - 3.4) Descending Ao 0.7 cm - LA dimension (AP) 2D 3.1 cm (2.3 - 3.8) LAd ISD 4CH 5.7 cm (2.9 - 5.3) LA ISD 4CH W 3.6 cm (2.5 - 4.5) Name Value Normal Range LA ESV SP 4CH (A/L) 49 ml - LA ESV SP 2CH (A/L) 73 ml - LA ESV BP (A/L) 63 ml - LA ESV BP (A/L) index 23.61 ml/m2 - LA ESV SP 4CH (MOD) 47 ml - LA ESV SP 2CH (MOD) 68 ml - Name Value Normal Range MV E-wave Vmax 0.8 m/sec - MV deceleration time 206 msec - MV A-wave Vmax 0.8 m/sec - MV E:A ratio 1.03 ratio - LV septal e' Vmax 0.08 m/sec - LV lateral e' Vmax 0.1 m/sec - LV E:e' septal ratio 10 ratio - LV E:e' lateral ratio 8 ratio - Name Value Normal Range AV Vmax 1.6 m/sec - AV VTI 34.5 cm - AV peak gradient 10.56 mmHg - AV mean gradient 5.62 mmHg - LVOT Vmax 1.4 m/sec - LVOT VTI 29 cm - LVOT peak gradient 8.02 mmHg - LVOT mean gradient 3.78 mmHg -
[2018-04-12 11:46] VITALS: BP 154/87
--- NOTE | 2018-04-12 12:22 | RAD ---
INDICATION: Chest pain COMPARISON: CTA chest/abdomen/pelvis April 11, 2018 TECHNIQUE: A single day SPECT protocol was utilized. Rest images were acquired following the intravenous injection of 10.7 millicuries of technetium 99m tetrofosmin. Pharmacologic stress images were acquired following the intravenous administration of 25.5 millicuries of technetium 99m tetrofosmin. FINDINGS: There is a small fixed apical defect which could be related to apical thinning. The cardiac chamber size is enlarged. There are no wall motion abnormalities. The ejection fraction is calculated at 58 percent during stress. IMPRESSION: SMALL FIXED APICAL DEFECT MAY RELATE APICAL THINNING. NO FINDINGS OF ISCHEMIA. ENLARGED FEMUR SIZE. THE EJECTION FRACTION IS 58% ASSESSMENT: LOW-RISK Based on imaging criteria from ACC/AHA 2002 Guideline Update for the Management of Patients With Chronic Stable Angina Table 23. Noninvasive Risk Stratification.
[2018-04-12] MEDS: Acetaminophen TAB* 325 MG PO PRN (14:30)
[2018-04-12] MEDS ORDERED: Docusate CAP* 100 MG PO SCH (18:00)
[2018-04-12] MEDS ORDERED: Senna TAB PO SCH (18:00)
--- NOTE | 2018-04-13 02:04 | DS ---
CC: Dr. Jolly; Dr. Barillas; Dr. Porter; Dr. Kingsley; Dr. Galarza; Dr. Shah; Dr. Santillan* DISCHARGE SUMMARY: DATE OF ADMISSION: 04/11/18 DATE OF DISCHARGE: 04/12/18 PRIMARY CARE PROVIDER: Dr. Barillas as well as Dr. Jolly. DISCHARGE DIAGNOSES: 1. Chest pain with low probability cardiac stress test documented on the day of discharge. 2. Acute diastolic congestive heart failure due to uncontrolled hypertension. SECONDARY DIAGNOSES: 1. History of morbid obesity. 2. Obstructive sleep apnea, on CPAP. 3. Hypertension. 4. History of chronic pain, on narcotics. 5. History of 2 back laminectomies in 2014 and 2015. 6. History of anemia. 7. History of bilateral lymphedema. 8. Irritable bowel syndrome. 9. Anxiety. 10. Depression. 11. Tripathi's esophagus, status post Ana fundoplication. 12. Hyperlipidemia. 13. History of panniculectomy and subsequent development of cellulitis in 2011. 14. Cholecystectomy in 2008. 15. History of bariatric surgery in the past. 16. History of varicose veins surgery in the past. 17. History of negative cardiac catheterization in 2011. MEDICATIONS AT DISCHARGE: Include: 1. Lasix was switched from on a p.r.n. basis to 40 mg daily. In fact, the patient was advised to take Lasix on a daily at the beginning of the month by his primary care provider, but he has not started yet. He was strongly encouraged to do so. 2. The patient's nifedipine ER was changed from 30 mg daily to 60 mg daily. The remaining medications are unchanged and those include: 1. Acetaminophen on a p.r.n. basis. 2. Wellbutrin 200 mg daily. 3. Flexeril 10 mg t.i.d. p.r.n. 4. Dicyclomine 2 tabs at bedtime p.r.n. 5. Flonase nasal spray 2 sprays both nostrils daily. 6. Neurontin 600 mg 3 times a day, 900 mg at bedtime. 7. Ativan 0.5 mg 1 to 2 tablets 3 times a day p.r.n. 8. Citrucel 1 packet of powder daily p.o. 9. Embeda 1 capsule b.i.d. 10. Oxycodone 10 mg every 4 hours p.r.n. 11. Protonix 80 mg b.i.d. 12. Senna 2 tablets q.p.m. 13. Cialis 10 to 20 mg p.r.n. 14. Potassium chloride was switched from p.r.n. dosing to 10 mEq b.i.d. schedule. LABORATORY DATA AND STUDIES PERFORMED DURING HOSPITAL STAY: Included: On 04/12/18, sodium of 140, potassium 4.2, chloride 105, carbon dioxide 31, BUN 11, creatinine was 1.08. Transthoracic echocardiogram obtained on 04/12/18, impression: Left ventricle chamber size is normal. Mild concentric LVH. Global left ventricular wall motion and contractility within normal limits. There was normal left ventricular systolic function. The estimated ejection fraction is 55% to 60%. The left atrial chamber size is normal. The right ventricular chamber size and function are within normal limits. Unable to estimate the right ventricular systolic pressure. The pulmonic valve structure is not well visualized. Otherwise, no significant valvular abnormalities noted. There is mild dilatation of the aortic root. The ascending aorta is not well visualized. ___ __ was used to optimize the study." The patient's pharmacologic cardiac stress test obtained on the day of discharge , impression: "Low risk." It was noted to have small fix apical defect. It may relate to apical thinning. No findings of ischemia. The ejection fraction was noted to be 58%. The chamber size was noted to be enlarged. HOSPITALIZATION COURSE: Tony Whittaker is a 58-year-old male who has a history of morbid obesity and multiple other medical problems as delineated above, who presented complaining of shortness of breath and episodes of chest pain. In fact, the patient had been complaining of the same problem for the past couple of weeks. He went to see his primary care provider at the beginning of March and recommended to be started on Lasix from p.r.n. to a scheduled dose. Unfortunately, he did not want to urinate that often and he decided not to start it. When he presented to the ED, his systolic pressures were in the 170s and he appeared to be in acute diastolic CHF. He was given 40 mg of Lasix IV in the emergency department and followed up with 40 mg p.o. on a daily basis. He had rather significant urine output of approximately 2 L over the past 24 hours. His thoracic echocardiogram looked pretty good with no evidence of problems with EF. In regards to the patient's chest pain, it was likely related to his CHF. Nevertheless, he underwent a pharmacologic cardiac stress test that showed apical thinning, but good EF and no evidence of ischemia. In regards to the patient's hypertension, the patient's nifedipine ER was increased from 30 to 60 mg daily. The patient is going to be discharged home with recommendation to follow up with primary care provider in approximately 4 to 7 days. The patient was advised to check his weight on a daily basis. His weight at discharge was 317 pounds and 12.8 ounces. In regards to the patient's right thigh wound, Wound Care consult was not able to be obtained prior to the patient's discharge. The patient is recommended to follow up with wound care as an outpatient and continue Silvadene cream as needed on a daily basis. PHYSICAL EXAM AT THE TIME OF DISCHARGE: Unchanged from admission. Apart from that, the patient's crackles in bilateral bases resolved by the time of discharge. Please note that this is a short summary of the patient's hospitalization. Please refer to further medical records for details. TIME SPENT: Approximately 35 minutes were spent on the patient's discharge. [id number]/[facility] #: [id number] [facility]ITALLoretta
== END 2018-04-12 15:05 | disposition home or self-care (01) ==
LOC: ED 14:28 → MEDTELE 19:17
PROVIDERS: ADMIT Internal Medicine; ATTEND Internal Medicine
DX: I11.0 Hypertensive heart disease with heart failure (principal); I50.31 Acute diastolic (congestive) heart failure; R07.9 Chest pain, unspecified; R51 Headache; R06.02 Shortness of breath; F17.210 Nicotine dependence, cigarettes, uncomplicated; G47.33 Obstructive sleep apnea (adult) (pediatric); I10 Essential (primary) hypertension; G89.29 Other chronic pain; D64.9 Anemia, unspecified; I89.0 Lymphedema, not elsewhere classified; K58.9 Irritable bowel syndrome, unspecified; F41.9 Anxiety disorder, unspecified; F32.9 Major depressive disorder, single episode, unspecified; K22.70 Barrett's esophagus without dysplasia; E78.5 Hyperlipidemia, unspecified; Z98.84 Bariatric surgery status; Z90.49 Acquired absence of other specified parts of digestive tract; Z95.5 Presence of coronary angioplasty implant and graft
CPT/HCPCS: 36415; 71045; 71275; 74174; 78452; 80048; 80053; 83605; 84484; 85025; 93005; 93017; 93306; 96374; 99285; 99406; A9270-GY; A9502; C8929; G0378; J0280; J1644; J1940; J2785; Q9967

== ENCOUNTER 2019-06-12 17:18 | Emergency (ER) | payer OTHER ==
--- OUTSIDE RECORDS SUMMARY | 2019-06-12 17:38 | XMS REPORT | Continuity of Care Document ---
:1960 External Reference #:[id number] Author Name Narcisa Barillas M.D. Address [address] [place] [address] Care Team Providers Name Role Phone Rambo Santillan - Cardiovascular Disease Care Team Information Commercial Real Estate Agent [phone] Mckinley MCKEON, Soumya - Care Team Information Commercial Real Estate Agent [phone] Ophthalmology [facility] - Care Team Information Commercial Real Estate Agent Sewer Pipe Offbearer [facility] Utilization Electrical Software Engineer Care Team Information Commercial Real Estate Agent - Health Educator Bayron Lemos MD - Neurological Care Team Information Commercial Real Estate Agent Surgery Hardy Berry - Urology Care Team Information Commercial Real Estate Agent [phone] Leandro Zamora - Neurological Care Team Information Commercial Real Estate Agent Surgery Bishop Jacinto MD - Nephrology Care Team Information Commercial Real Estate Agent [phone] Bayron Call MD - Wound Care Care Team Information Commercial Real Estate Agent [facility] - Care Team Information Commercial Real Estate Agent [phone] Physical Therapy Narcisa Barillas M.D. - Family Medicine Care Team Information Commercial Real Estate Agent Unavailable Boo Galarza - Pain Care Team Information Commercial Real Estate Agent [phone] Kody Abraham - Falsework Builder Care Team Information Commercial Real Estate Agent [facility] - Care Team Information Commercial Real Estate Agent [phone] [facility] Pain Clinic - Interventional Pain Care Team Information Commercial Real Estate Agent [phone] Medicine Problems Active Problems Provider Date Mild recurrent major depression Jim Jolly M.D. Onset: 08/11/2010 Generalized anxiety disorder Jim Jolly M.D. Onset: 08/11/2010 Benign essential hypertension Jim Jolly M.D. Onset: 08/11/2010 Irritable bowel syndrome Jim Jolly M.D. Onset: 08/11/2010 Essential hypertension ANDRÉS Betancourt Onset: 06/10/2015 Allergic rhinitis Jim Jolly M.D. Onset: 06/22/2015 Gastroesophageal reflux disease Jim Jolly M.D. Onset: 06/22/2015 Note: Tripathi's Spondylolysis Jim Jolly M.D. Onset: 10/05/2015 Chronic pain syndrome Jim Jolly M.D. Onset: 10/05/2015 Aneurysm of thoracic aorta Jim Jolly M.D. Onset: 10/05/2015 Microscopic hematuria Jim Jolly M.D. Onset: 10/05/2015 Chronic congestive heart failure Narcisa Barillas M.D. Onset: 07/11/2018 Obstructive sleep apnea syndrome Narcisa Barillas M.D. Onset: 07/11/2018 Lymphedema Narcisa Barillas M.D. Onset: 07/11/2018 Morbid obesity Narcisa Barillas M.D. Onset: 07/11/2018 Left foot drop Narcisa Barillas M.D. Onset: 07/11/2018 Idiopathic peripheral autonomic neuropathy Narcisa Barillas M.D. Onset: 2017 Anemia Narcisa Barillas M.D. Onset: 07/11/2018 Anxiety state Narcisa Barillas M.D. Onset: 07/11/2018 Spondylolysis Narcisa Barillas M.D. Onset: 07/11/2018 Diastolic heart failure Narcisa Barillas M.D. Onset: 07/11/2018 Bariatric surgery status Narcisa Barillas M.D. Onset: 07/11/2018 Tripathi's esophagus Narcisa Barillas M.D. Onset: 07/11/2018 Obesity Narcisa Barillas M.D. Onset: 04/16/2019 Social History Type Date Description Comments Sex Unknown Tobacco Use Start: Unknown Current Cigarette Smoker Tobacco Use Start: Unknown Heavy tobacco smoker (more than 10 cig/day) Smoking Status Reviewed: 11/06/18 Heavy tobacco smoker (more than 10 cig/day) ETOH Use Rare Tobacco Use Start: Unknown Patient is a current smoker, smokes every day Allergies, Adverse Reactions, Alerts Active Allergies Reaction Severity Comments Date Erythromycin blisters 07/10/2013 Medications Active Medications SIG Qnty Indications Ordering Date Provider Bupropion 1 by mouth every 90tabs F34.1 [facility] 03/27/2019 Hydrochloride ER (XL) day M.D. 300mg Tablets ER 24HR Nicoderm CQ apply one patch 42units [facility] 02/11/2019 21mg/24HR daily for up to 6 M.D. Patches 24HR weeks Nicotine once completing 42units Z71.6 [facility] 02/11/2019 14mg/24HR the 21mg/24 hour M.D. Patches 24HR patches, apply once a day for 4 weeks, then go to every other day Nicotine Mini use one lozenge 162units Z71.6 [facility] 02/11/2019 2mg every hour as M.D. Lozenges needed for cigarette craving Sildenafil Citrate 1/2- 1 tab prior 30tabs [facility] 12/05/2018 100mg to relations M.D. Tablets Nifedipine ER Take One Tablet By 30tabs R60.0 [facility] 04/25/2018 60mg Mouth Every Day M.D. Tablets ER 24HR Biotene Dry Mouth swish/spit 5 1Bottle R68.2 [facility] 06/06/2017 Liquid milliliters up to M.D. 5 times daily as needed dry mouth Pain & Fever Extra take 1-2 tablets 120tabs [facility] 06/06/2017 Strength by mouth every 12 M.D. 500mg Tablets hours as needed for pain Furosemide 1 by mouth twice a 60tabs R60.0 [facility] 08/17/2016 40mg Tablets day M.D. Senna take two tablets 60tabs [facility] 01/29/2016 8.6mg Tablets by mouth every day M.D. Lorazepam take one tablet by 90tabs [facility] 04/13/2015 0.5mg Tablets mouth three times M.D. a day; max/day 3 tablets Fluticasone Propionate spray 2 doses into 16units J30.89 [facility] 10/2014 each nostril at M.D. 50mcg/Act Suspension bedtime Potassium Chloride ER 2 by mouth twice 120caps [facility] 03/25/2014 daily M.D. 10Meq Capsules ER Cyclobenzaprine HCL 1 by mouth three 90tabs [facility] 10mg times a day M.D. Tablets Oxycodone HCL 1 by mouth every 180tabs M51.36 [facility] 15mg 4h as needed pain M.D. Tablets Miralax 17 gm powder in Unknown [id number] Powder fluid daily Gabapentin 2 by mouth 3 times 270caps G89.4 [facility] 300mg Capsules a day and 3 by M.D. mouth every night at bedtime Pantoprazole Sodium Take One Tablet po 30tabs Jim Hammer 40mg bid Romel Jolly Tablets DR Dicyclomine HCL take two tablets 180tabs [facility] 20mg by mouth at M.D. Tablets bedtime and 1 every 6 hours as needed for spasms Embeda 1 by mouth twice Unknown 50-2mg Capsules ER daily Medications Administered in Office Medication SIG Qnty Indications Ordering Provider Date Brief Emotional/Behav ANDRÉS Betancourt 12/20/2017 Assessment W/ Scoring Doc Per Standard Inst Injection B-12 Injection Jim Jolly M.D. 01/27/2014 Injection Injection Subcutaneous Or Jim Jolly M.D. 01/27/2014 Intramuscular Injection B-12 Injection Jim Jolly M.D. 11/21/2011 Injection Injection Subcutaneous Or Jim Jolly M.D. 11/21/2011 Intramuscular Injection Immunizations CPT Code Status Date Vaccine Lot # [id number] Given 05/29/2018 Influenza Vac, Quadrivalent, Slit Virus, Im [id number] Given 12/20/2017 Tdap Tetanus, W Pertussis [id number] Given 12/20/2017 Pneumococcal Conjugate Vacc-13 [id number] Given 06/06/2017 Influenza Vac, Quadrivalent, Slit Virus, Im [id number] 83492 Given 07/06/2016 Influenza Vac, Quadrivalent, Slit Virus, Im [id number] 32743 Given 07/10/2013 DO Not Use Split Influenza Virus Vaccine [id number] Given 08/11/2010 DO Not Use Split Influenza Virus Vaccine [id number] Vital Signs Date Vital Result Comment 04/16/2019 4:21pm BP Systolic 140 mmHg BP Diastolic 80 mmHg Heart Rate 68 /min Body Temperature 98.2 F Respiratory Rate 18 /min Height 74 inches 6'2" Weight 360.00 lb BMI (Body Mass Index) 46.2 kg/m2 11/06/2018 1:35pm BP Systolic 168 mmHg BP Diastolic 80 mmHg Heart Rate 90 /min Body Temperature 98.4 F Height 74 inches 6'2" Weight 349.00 lb BMI (Body Mass Index) 44.8 kg/m2 Results Test Date Facility Test Result H/L Range Note Drug Abuse 20 01/03/2019 [facility] Urine Amphetamine Negative ng/mL 1 Urine Urine Barbiturates Negative ng/mL 2 Urine Benzodiazepines Negative ng/mL 3 Urine Cocaine Negative ng/mL 4 Urine Phencyclidine Negative ng/mL Cutoff: 25 Urine Tetrahydrocannabinol Negative ng/mL Cutoff: 50 5 Creatinine, Urine 22.0 mg/dL Specific [place] 1.006 pH 6.8 Oxidants Negative 6 Adulterants Comment Normal Codeine, Ur Not Detected ng/mL Cutoff: 25 7 Wnlwemd-9-dtbm-glucuronide, Ur Not Detected ng/mL 8 Morphine, Ur Present ng/mL Abnormal Cutoff: 25 9 Ubvpodhd-7-qddu-glucuronide, U Present ng/mL Abnormal 10 6-monoacetylmorphine, Ur Not Detected ng/mL Cutoff: 25 11 Hydrocodone, Ur Not Detected ng/mL Cutoff: 25 12 Norhydrocodone, Ur Not Detected ng/mL Cutoff: 25 13 Dihydrocodeine, Ur Not Detected ng/mL Cutoff: 25 14 Hydromorphone, Ur Not Detected ng/mL Cutoff: 25 15 Njiwshmjilanq5kjbrfocvccrrzye Not Detected ng/mL 16 Oxycodone, Ur Present ng/mL Abnormal Cutoff: 25 17 Noroxycodone, Ur Present ng/mL Abnormal Cutoff: 25 18 Oxymorphone, Ur Not Detected ng/mL Cutoff: 25 19 Rwvqxbpwnor-0-elue-glucuronide Present ng/mL Abnormal 20 Noroxymorphone, Ur Not Detected ng/mL Cutoff: 25 21 Fentanyl, Ur Not Detected ng/mL Cutoff: 2 22 Norfentanyl, Ur Not Detected ng/mL Cutoff: 2 23 Meperidine, Ur Not Detected ng/mL Cutoff: 25 24 Normeperidine, Ur Not Detected ng/mL Cutoff: 25 25 Naloxone, Ur Not Detected ng/mL Cutoff: 25 26 Ebbwzbgl-1-uvyp-glucuronide, U Not Detected ng/mL 27 Methadone, Ur Not Detected ng/mL Cutoff: 25 28 Eddp, Ur Not Detected ng/mL Cutoff: 25 29 Propoxyphene, Ur Not Detected ng/mL Cutoff: 25 30 Norpropoxyphene, Ur Not Detected ng/mL Cutoff: 25 31 Tramadol, Ur Not Detected ng/mL Cutoff: 25 32 O-desmethyltramadol, Ur Not Detected ng/mL Cutoff: 25 33 Tapentadol, Ur Not Detected ng/mL Cutoff: 25 34 N-desmethyltapentadol, Ur Not Detected ng/mL Cutoff: 50 35 Oirbwwytjs-pqyt-ubclowdkhhx, U Not Detected ng/mL 36 Buprenorphine, Ur Not Detected ng/mL Cutoff: 5 37 Norbuprenorphine, Ur Not Detected ng/mL Cutoff: 5 38 Norbuprenorphine glucuronide Not Detected ng/mL Cutoff: 20 39 Opioid Interpretation See Comment 40 Comprehensive Metabolic 12/19/2018 [facility] Hannah([facility]ma) Sodium 139 mEq/L 134-149 Prof Potassium 4.7 mEq/L 3.6-5.5 Chloride 102 mEq/L 94-112 Carbon Dioxide 28 mEq/L 21-32 Glucose 95 mg/dL 70-105 BUN 17 mg/dL 6-26 Creatinine 1.0 mg/dL 0.6-1.4 BUN/Creat Ratio 17.0 CALC 8.0-36.0 Calcium 8.0 mg/dL Low 8.6-10.2 41 Total Protein 6.8 g/dL 6.4-8.3 Albumin 4.3 g/dL 3.8-5.5 Globulin 2.5 g/dL 2.0-4.8 A/G Ratio 1.7 CALC 0.6-2.3 Alk. Phosphatase 121 U/L High 22-95 42 Alt (SGPT) 12 U/L 7-35 Ast (Sgot) 19 U/L 5-34 Total Bilirubin 0.5 mg/dL 0.2-1.3 GFR Non- >60 ml/min/1.73m^ >=60 GFR >60 ml/min/1.73m^ >=60 Laboratory test finding 12/19/2018 Uklkarni Hannah(a) TSH 0.97 mIU/L 0.50-6.00 CBC Electronic [facility] 12/19/2018 Kulkarni Hannah(fma) WBC 5.2 x10^3/UL 4.0- 10.0 RBC 4.32 x10^6/UL 3.93-6.00 HGB 13.0 g/dL 12.0-17.0 HCT 42 % 35-50 MCV 97.2 fL High 80.0-95.0 MCH 30.1 pg 25.6-32.2 MCHC 31.0 g/dL Low 32.2-36.0 43 RDW-CV 13.7 % 11.6-14.4 PLT 219 x10^3/UL 163-400 MPV 9.8 fL 9.4-12.4 Pepe# 3.65 x10^3/UL 1.56-6.13 Lymph# 0.63 x10^3/UL Low 1.18-3.74 Toole# 0.46 x10^3/UL 0.24-0.82 Eos # 0.4 x10^3/UL 0.0-0.5 Baso # 0.06 x10^3/UL 0.01-0.08 Pepe% 70.0 % 34.0-70.0 Lymph % 12.1 % Low 20.0-52.0 Toole% 8.8 % 5.0-12.0 Eos% 7.7 % High 0.7-7.0 Baso% 1.2 % 0.1-1.2 Toxassure Select 13 12/19/2018 [facility] Summary Report FINAL 44 (MW) [address] [facility] (Summary) [place] [address] [phone] - PDF . Laboratory test 12/19/2018 [facility] Please note See Comment: 45 finding [address] [place] [address] [phone] - PDF [id number] SEE IMAGE Toxassure Select 13 11/06/2018 [facility] Summary Report FINAL 46 (MW) [address] [facility] (Summary) [place] [address] [phone] - PDF . Laboratory test 11/06/2018 [facility] PDF [id number] SEE IMAGE finding [address] [place] [address] ([phone] - 1 REFERENCE VALUE Cutoff: 500 2 REFERENCE VALUE Cutoff: 200 3 REFERENCE VALUE Cutoff: 100 4 REFERENCE VALUE Cutoff: 150 5 ADDITIONAL INFORMATION This report is intended for use in clinical monitoring or management of patients. It is not intended for use in employment-related testing. 6 REFERENCE VALUE Cutoff: 200 mg/L 7 Tylenol 3 8 Metabolite of codeine REFERENCE VALUE Cutoff: 100 9 Jeni Erwin, Contin; Also a minor metabolite (10%) of codeine and can be seen in low concentrations (<2,000 ng/mL) with poppy seed ingestion. 10 Metabolite of morphine REFERENCE VALUE Cutoff: 100 11 Metabolite of heroin 12 Lortab, [place], Vicodin; Also a very minor metabolite of codeine and impurity (<1%) of oxycodone. 13 Metabolite of hydrocodone 14 Metabolite of hydrocodone 15 Dilaudid, Exalgo; Also a metabolite of hydrocodone and a minor (<5%) metabolite of morphine. 16 Metabolite of hydromorphone REFERENCE VALUE Cutoff: 100 17 Endocet, Percocet, Oxycontin 18 Metabolite of oxycodone 19 Numorphan, Opana; Also a metabolite of oxycodone. 20 Metabolite of oxymorphone REFERENCE VALUE Cutoff: 100 21 Metabolite of oxymorphone 22 Actiq, Duragesic, Fentora 23 Metabolite of fentanyl 24 Demerol 25 Metabolite of meperidine 26 Narcan 27 Metabolite of naloxone REFERENCE VALUE Cutoff: 100 28 Dolophine 29 Metabolite of methadone 30 Darvon, Darvocet 31 Metabolite of propoxyphene 32 Tradol, Ultram, Ultracet 33 Metabolite of tramadol 34 Nucynta 35 Metabolite of tapentadol 36 Metabolite of tapentadol REFERENCE VALUE Cutoff: 100 37 Buprenex, Suboxone 38 Metabolite of buprenorphine 39 Metabolite of buprenorphine 40 Test detected the presence of both morphine and its metabolite (vcwhumsn-1-svtv-glucuronide). Suspect use of morphine within the past three days. Alternatively, these results could also be suggestive of heroin use. Low levels of morphine can also be seen following poppy seed ingestion. Test detected the presence of oxycodone and one of its metabolites (noroxycodone) along with wifereiklys-7-ssmq-glucuronide (metabolite of oxymorphone). Suspect use of oxycodone and/or oxymorphone within the past three days. ADDITIONAL INFORMATION This test was developed and its performance characteristics determined by [facility] in a manner consistent with CLIA requirements. This test has not been cleared or approved by the U.S. Food and Drug Administration. Test Performed by: [facility] [address] [place] [id number] 41 RESULTS VERIFIED BY REPEAT ANALYSIS 42 RESULTS VERIFIED BY REPEAT ANALYSIS 43 RESULTS VERIFIED BY REPEAT ANALYSIS 44 TOXASSURE SELECT 13 (MW) Test Result Flag Units Drug Present and Declared for Prescription Verification Lorazepam 570 EXPECTED ng/mg creat Source of lorazepam is a scheduled prescription medication. Morphine 70598 EXPECTED ng/mg creat Normorphine 1235 EXPECTED ng/mg creat Potential sources of large amounts of morphine in the absence of codeine include administration of morphine or use of heroin. Normorphine is an expected metabolite of morphine. Hydromorphone 405 EXPECTED ng/mg creat Hydromorphone may be present as a metabolite of morphine; concentrations of hydromorphone rarely exceed 5% of the morphine concentration when this is the source of hydromorphone. Oxycodone 1995 EXPECTED ng/mg creat Oxymorphone 415 EXPECTED ng/mg creat Noroxycodone 3930 EXPECTED ng/mg creat Sources of oxycodone include scheduled prescription medications. Oxymorphone and noroxycodone are expected metabolites of oxycodone. Oxymorphone is also available as a scheduled prescription medication. Test Result Flag Units Ref Range Creatinine 20 mg/dL >=20 Declared Medications: The flagging and interpretation on this report are based on the following declared medications. Unexpected results may arise from inaccuracies in the declared medications. Note: The testing scope of this panel includes these medications: Lorazepam Morphine (Embeda) Oxycodone Note: The testing scope of this panel does not include following reported medications: Bupropion Cyclobenzaprine Dicyclomine Fluticasone Furosemide Gabapentin Mouthwash Naltrexone (Embeda) Nicotine Nicotine (Nicoderm) Nifedipine Pantoprazole Polyethylene Glycol (MiraLAX) Potassium Sennosides (Senna) Sildenafil Undefined Miscellaneous Drug For clinical consultation, please call . 45 The date and/or time of collection was not indicated on the requisition as required by state and federal law. The date of receipt of the specimen was used as the collection date if not supplied. 46 TOXASSURE SELECT 13 (MW) Specimen Alert Note: Urinary creatinine is low; ability to detect some drugs may be compromised. Interpret results with caution. Test Result Flag Units Drug Present and Declared for Prescription Verification Oxycodone 1160 EXPECTED ng/mg creat Noroxycodone 1600 EXPECTED ng/mg creat Sources of oxycodone include scheduled prescription medications. Noroxycodone is an expected metabolite of oxycodone. Drug Absent but Declared for Prescription Verification Lorazepam Not Detected UNEXPECTED ng/mg creat Morphine Not Detected UNEXPECTED ng/mg creat Test Result Flag Units Ref Range Creatinine 10 L mg/dL >=20 Declared Medications: The flagging and interpretation on this report are based on the following declared medications. Unexpected results may arise from inaccuracies in the declared medications. Note: The testing scope of this panel includes these medications: Lorazepam Morphine (Embeda) Oxycodone Note: The testing scope of this panel does not include following reported medications: Amoxicillin Bupropion Cyclobenzaprine Dicyclomine Fluticasone Furosemide Gabapentin Naltrexone (Embeda) Nicotine Nicotine (Nicoderm) Nifedipine Pantoprazole Polyethylene Glycol (MiraLAX) Potassium Sennosides (Senna) Sildenafil For clinical consultation, please call . Procedures Date Code Description Status 02/01/2016 [id number] Colonoscopy Completed 09/14/2010 [id number] Colonoscopy Completed Medical Devices Description No Information Available Encounters Type Date Location Provider Dx Diagnosis Office Visit 11/06/2018 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 04/16/2019 I10 Essential (primary) hypertension Narcisa Barillas M.D. 04/16/2019 I50.30 Unspecified diastolic (congestive) heart Narcisa Barillas M.D. failure 04/16/2019 M43.06 Spondylolysis, lumbar region Narcisa Barillas M.D. 04/16/2019 I89.0 Lymphedema, not elsewhere classified Narcisa Barillas M.D. 04/16/2019 E66.9 Obesity, unspecified Narcisa Barillas M.D. 04/16/2019 G60.9 Hereditary and idiopathic neuropathy, Narcisa Barillas M.D. unspecified 04/16/2019 G47.33 Obstructive sleep apnea (adult) (pediatric) Narcisa Barillas M.D. 04/16/2019 R32 Unspecified urinary incontinence Narcisa Barillas M.D. 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 Claribel Patric[place], [place] 11/06/2018 F17.200 Nicotine dependence, unspecified, Claribel Patricio, [place] uncomplicated 11/06/2018 Z71.6 Tobacco abuse counseling Claribel Patricio NP Plan of Treatment Future Appointment(s):05/02/2019 1:30 pm - ANDRÉS Betancourt at [facility]04/16/2019 - Narcisa Barillas M.D.G89.4 Chronic pain syndromeNew Labs:B12 ( [facility]), Ordered: 04/16/19I10 Essential (primary) hypertensionNew Labs: Comp Metabolic-ALL [facility], Ordered: 04/16/19Lipid Panel-ALL [facility], Ordered: 04/16/19CBC Electronic-[facility], Ordered: 04/16/19Ua - Micro If Indicated ([facility], Ordered: 04/16/19Free T4 ([facility]), Ordered: 04/16/19TSH ( [facility]), Ordered: 04/16/19Comments:The patient will continue to monitor blood pressure and let me know the blood pressure results if there are readings persistently above 140/90. Goal blood pressure is less than 130/80. Recommend low salt/cardiac diet such as the Mediterranean diet and routine exercise at least 30 minutes a day.I50.30 Unspecified diastolic (congestive) heart failureNew Labs:Comp Metabolic-[facility], Ordered: 04/16/19CBC Electronic-[facility], Ordered: 04/16/19TSH ([facility]), Ordered: Comments:Patient was advised to call or return if there was a significant increase in peripheral edema, shortness of breath, or zdsgyaT64.06 Spondylolysis , lumbar vgcgtmO92.0 Lymphedema, not elsewhere zgposgwqeoU09.9 Obesity, unspecifiedNew Labs:Comp Metabolic-[facility], Ordered: 04/16/19Lipid Panel -[facility], Ordered: 04/16/19CB Electronic-ALL [facility], Ordered: Free T4 ([facility]), Ordered: 04/16/19TSH ([facility]), Ordered: Hemoglobin A1c ([facility]), Ordered: 04/16/19Folic Acid ([facility]), Ordered: 04/16/19Comments:Counseled on heart healthy diet such as Mediterranean diet. Eat protein and vegetables first then carbohydrates last. Get at least 150 minutes of moderate aerobic activity or 75 minutes of vigorous aerobic activity a week, or a combination of moderate and vigorous activity. General goal of 30 minutes of physical activity a day.G60.9 Hereditary and idiopathic neuropathy, unspecifiedComments:may neeed another MRI neck thoracic and lumbar, will see neurosx soonG47.33 Obstructive sleep apnea (adult) (pediatric)Comments: not using cpap in 1 yr, refer for another sleep study as didn't [id number] Unspecified urinary incontinenceComments:refer urologyAllComments:Medication Management Patient Understands medications he's taking? Yes No Are there Barriersto Adherence? Yes No Has the patient been asked about herbal supplements and therapies, and OTC meds? Yes No Functional Status Description No Information Available Mental Status Description No Information Available Referrals Refer to Reason for Referral Status Appt Date [facility] needs a consult MARIELA!!! Sent [address] [place] [phone] Delma P.T. & Bilateral Lower Scheduled Lymphedema Extremities....[facility] [address] [place] [address] [phone] Violet Christianson Nerve Conduction Study Bilateral upper and Scheduled lower extremities jw [address] [place] [address] [phone]
--- OUTSIDE RECORDS SUMMARY | 2019-06-12 17:38 | XMS REPORT | Continuity of Care Document ---
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 [phone] Problems Active Problems Provider Date Esophageal dysphagia Juan Palm MD Onset: 04/02/2019 Incontinence of feces Juan Palm MD Onset: 06/15/2016 Gastroesophageal reflux disease Juan Palm MD Onset: 06/15/2016 Flatulence, eructation and gas pain Juan Palm MD Onset: 06/15/2016 Social History Type Date Description Comments Sex Unknown Tobacco Use Start: Unknown Heavy tobacco smoker (more than 10 cigarettes/day) Smoking Status Reviewed: 04/02/19 Heavy tobacco smoker (more than 10 cigarettes/day) Allergies, Adverse Reactions, Alerts Active Allergies Reaction Severity Comments Date Erythromycin 07/03/2014 Medications Active Medications SIG Qnty Indications Ordering Date Provider Pantoprazole Sodium take one tablet 60tabs Juan Sanchez 09/05/2016 40mg by mouth twice a MD Néstor Tablets day Bupropion HCL 2 by mouth daily 180tabs F34.1 [facility], 04/19/2016 100mg [place]ha[place] collazo Tablets Senna 2 po qd 60tabs [facility], 01/29/2016 8.6mg Tablets [place] Garcia Citrucel one dose per day 907units K59.01 [facility], 01/29/2016 Powder to facilitate [place] Garcia daily BM, orange flavor please Lasix 2 by mouth daily 60tabs R60.0 [facility], 12/16/2015 40mg Tablets Nisoldipine ER take 1 tablet by 90tabs R60.0 [facility] 12/10/2015 17mg mouth one time MD Tablets ER 24HR daily Cialis take 1/2 -1 2tabs [facility], 10/05/2015 20mg Tablets tablet by mouth for a one time dose on given day, as directed maximum daily dose = one tablet Morphine Sulfate ER bid Unknown 30mg Caps ER 24HR Dicyclomine HCL Take Two Tablets 180tabs Rell Lynn,M 20mg By Mouth At D Tablets Bedtime as Needed And 1 Every 6 Hours as Needed For Spasms Miralax 17 gm powder in Unknown 3350NF Powder fluid daily Acetaminophen 1 po tid Unknown 325mg Tablets Lorazepam Jim Jolly, 0.5mg Tablets MD Potassium Chloride ER Jim Jolly, 10Meq Capsules ER Oxycodone HCL Boo Galarza, 15mg MD Tablets Cyclobenzaprine HCL Jim Jolly, 10mg MD Tablets Fluticasone Propionate Jim Jolly, 50mcg/Act Suspension Gabapentin 600 mgX4 Unknown 300mg Capsules Immunizations Description No Information Available Vital Signs Date Vital Result Comment 04/02/2019 3:37pm Height 74 inches 6'2" Weight 356.00 lb BP Systolic 149 mmHg BP Diastolic 86 mmHg Heart Rate 78 /min BMI (Body Mass Index) 45.7 kg/m2 06/15/2016 1:29pm Height 74 inches 6'2" Weight 340.00 lb BP Systolic 143 mmHg BP Diastolic 84 mmHg Heart Rate 78 /min BMI (Body Mass Index) 43.6 kg/m2 Results Test Date Facility Test Result H/L Range Note Laboratory test 05/03/2019 [facility] SEE RESULT 1 finding Pathology Order BELOW 1 SEE RESULT BELOW Name: EDIN WHITTAKER : [address]: Juan Palm MD Acct: [id number] Unit: [id number] AGE: 59 Location: [facility] Re05/03/19 SEX: M Status: REG REF SPEC: [id number] MARCIA: 05/03/19-[address] [facility] [address]: Juan Palm MD REQ: [id number] RECD: 05/03/19140 STATUS: MAXIME SOLORIO DR: Narcisa Barillas MD _ ORDERED: LEVEL 4/2 FINAL DIAGNOSIS 1. Gastroesophageal junction, biopsy: -- Gastroesophageal transition zone mucosa with mild nonspecific reactive squamous epithelial changes. -- No evidence of reflux esophagitis identified. -- No goblet cell/intestinal metaplasia or dysplasia identified. 2. Esophagus, biopsy: -- Superficial squamous mucosa. -- No evidence of allergic/eosinophilic or reflux esophagitis identified. CLINICAL HISTORY Dysphagia POST-OPERATIVE DIAGNOSIS EGD: esophagus ??? unknown eosinophilic esophagitis; gastric ??? normal; pouch wide; duodenum ??? normal GROSS DESCRIPTION 1. The specimen is received in formalin labeled, Biopsy GE Junction, and consists of a 0.4 x 0.3 x 0.1 cm white-pink irregular soft tissue fragment which is submitted entirely in one cassette. 2. The specimen is received in formalin labeled, Biopsy Random Esophagus, and consists of a 0.6 x 0.4 x 0.1 cm aggregate of translucent white-pink irregular soft tissue fragments which is submitted entirely in one cassette. Signed by and Reported on: Ronaldo Posada MD 05/16 1233 END OF REPORT DEPARTMENT OF PATHOLOGY, [address] [place] [address] Ronaldo Posada M.D. Director [facility] # [id number] SEE RESULT BELOW Name: EDIN WHITTAKER : [address]: Juan Palm MD Acct: [id number] Unit: [id number] AGE: 59 Location: ENDO Re05/03/19 SEX: M Status: REG REF SPEC: [id number] MARCIA: 05/03/19-[address] [facility] [address]: Juan Plam MD REQ: [id number] RECD: 05/03/19 STATUS: MAXIME SOLORIO DR: Narcisa Barillas MD _ ORDERED: LEVEL 4/2 FINAL DIAGNOSIS 1. Gastroesophageal junction, biopsy: -- Gastroesophageal transition zone mucosa with mild nonspecific reactive squamous epithelial changes. -- No evidence of reflux esophagitis identified. -- No goblet cell/intestinal metaplasia or dysplasia identified. 2. Esophagus, biopsy: -- Superficial squamous mucosa. -- No evidence of allergic/eosinophilic or reflux esophagitis identified. CLINICAL HISTORY Dysphagia POST-OPERATIVE DIAGNOSIS EGD: esophagus ??? unknown eosinophilic esophagitis; gastric ??? normal; pouch wide; duodenum ??? normal GROSS DESCRIPTION 1. The specimen is received in formalin labeled, Biopsy GE Junction, and consists of a 0.4 x 0.3 x 0.1 cm white-pink irregular soft tissue fragment which is submitted entirely in one cassette. 2. The specimen is received in formalin labeled, Biopsy Random Esophagus, and consists of a 0.6 x 0.4 x 0.1 cm aggregate of translucent white-pink irregular soft tissue fragments which is submitted entirely in one cassette. Signed by and Reported on: Ronaldo Posada MD 05/16 1233 END OF REPORT DEPARTMENT OF PATHOLOGY, [address] [place] [address] Ronaldo Posada M.D. Director [facility] # [id number] Procedures Description No Information Available Medical Devices Description No Information Available Encounters Type Date Location Provider Dx Diagnosis Office Visit Gastroenterology Juan Sanchez R13.14 Dysphagia, 9 3:[facility] MD pharyngoesophageal phase Assessments Date Code Description Provider 04/02/2019 R13.14 Dysphagia, pharyngoesophageal phase Juan Palm MD Plan of Treatment 04/02/2019 - Juan Palm, MDR13.14 Dysphagia, pharyngoesophageal phaseComments:RISKS AND BENEFITS OF THE PROCEDURE WERE DISCUSSED WITH PATIENT. I had a long discussion with thepatient regarding his need for another upper endoscopy to evaluate for his dysphagia will make arrangements for it at the hospital Functional Status Description No Information Available Mental Status Description No Information Available Referrals Description No Information Available
--- OUTSIDE RECORDS SUMMARY | 2019-06-12 17:38 | XMS REPORT | Continuity of Care Document ---
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 Problems Active Problems Provider Date Esophageal dysphagia [...] HCL 2 by mouth daily 180tabs F34.1 [facility], 04/19/2016 100mg Radha[place] collazo Tablets Senna 2 po qd 60tabs [facility], 01/29/2016 8.6mg Tablets [place] Garcia Citrucel one dose per day 907units K59.01 [facility], 01/29/2016 Powder to facilitate [place] Garcia [...] 24HR Dicyclomine HCL Take Two Tablets 180tabs LeahRell,M 20mg By Mouth At D Tablets Bedtime [...] BMI (Body Mass Index) 43.6 kg/m2 Results Description No Information Available Procedures Description No Information Available Medical Devices Description No Information Available Encounters Description No Information Available Assessments Date Code Description Provider 04/02/2019 R13.14 [...]
[2019-06-12 17:41] VITALS: BP 154/93
--- NOTE | 2019-06-12 18:26 | UC ---
Throat Pain/Nasal Nelson HPI - HPI Summary HPI Summary: 59 yo man with complex medical problems, presents with one week history of slowly progressive left cheek swelling. Assessed last week by Dr. Porter at follow up visit for anemia, and has used lemon drops and increased fluids, some compressing. No fever or chills. Aware of slowly progressive swelling despite the above intervention. Edentulous. Focus of pain has moved from the jaw to the mid cheek and left nasal area. 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 Chronic severe lymphedema. 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 Psychological History: Depression - Surgical History Surgical History: Yes Surgery Procedure, Year, and Place: lsp surgery 05/2014,panniculectomy 03/05/2013 ; pt reopened 03/12/13 for drainage tube failure and infection10/2007--bariatric sURGERY,BILAT LOW LEG VEIN SURGERY(NO IMPLANTS), NISAN FUNDOPLICATION INGUINAL HERNIA REPAIR,CATARACT 10/2013,LAP CATRACHO/HERNIA 2008,BACK SURGERY 2013 ; Spinal Fusion Sep 17, 2015 [facility], back surgery 2016 - Family History Known Family History: Positive: Cardiac Disease, Hypertension - Social History Occupation: Disabled Lives: With Family Alcohol Use: None Alcohol Amount: 1 DRINK/MONTH Substance Use Type: None Substance Use Comment - Amount & Last Used: lorazapam and oxycodone Smoking Status (MU): Heavy Every Day Tobacco Smoker Type: Cigarettes Amount Used/How Often: 1 PPD Length of Time of Smoking/Using Tobacco: 4 YRS Have You Smoked in the Last Year: Yes Household Exposure Type: Cigarettes Review of Systems All Other Systems Reviewed And Are Negative: Yes Constitutional: Positive: Negative Skin: Positive: Other - recent increase in drainage from wound on right leg. Eyes: Negative: Blurred Vision, Diplopia, Drainage, Eye Redness, Photophobia ENT: Negative: Sore Throat, Ear Ache, Nasal Discharge Respiratory: Positive: Shortness Of Breath - chronic, has increased 20 pounds in the past months. Use of diuretic is inconsistent, possibly uses about 2x per week.. Negative: Cough Cardiovascular: Negative: Palpitations, Chest Pain Gastrointestinal: Negative: Vomiting, Diarrhea, Nausea Genitourinary: Positive: Urgency - has episodic incontinence Motor: Positive: Negative Neurovascular: Positive: Negative Musculoskeletal: Positive: Arthralgia Neurological: Positive: Headache Psychological: Positive: Negative Is Patient Immunocompromised?: No Physical Exam Triage Information Reviewed: Yes Appearance: Ill-Appearing, Pain Distress - mild to moderate, Obese Vital Signs: Initial Vital Signs Temp 98.3 F 06/12/19 17:38 Pulse 72 06/12/19 17:38 Resp 20 06/12/19 17:38 BP 154/93 06/12/19 17:38 Pulse Ox 99 06/12/19 17:38 ENT Exam: Other - diffuse swelling of left cheek with some induration in the mid jaw area. No discrete mass, and no submandibular adenopathy. No swelling of parotid. Gums healthy. No warmth or erythema of skin. ENT: Positive: Pharynx normal, Nasal congestion - boggy nasal mucosa, no pustules seen.. Negative: Pharyngeal erythema Dental Exam: Other - edentulous Neck: Positive: Supple, Nontender, No Lymphadenopathy Respiratory: Positive: Lungs clear, Normal breath sounds Cardiovascular: Positive: RRR, No Murmur Neurological: Positive: Alert Psychological Exam: Normal Skin Exam: Other - severe lymphedema of lower legs, with induration. Has healing knife wound approx 3 cm right lower leg, with excoriated area, one with drainage. Throat Pain/Nasal Course/Dx - Course Course Of Treatment: trial cephalexin for suspected soft tissue infection of the left cheek. Advised will need imaging if progresses or does not respond to antibiotic. ER if swelling progresses. - Differential Dx/Diagnosis Differential Diagnosis/HQI/PQRI: Pharyngitis, Tonsillitis, Other - cellulitis, parotitis. Provider Diagnosis: Cellulitis of left internal cheek Discharge ED - Sign-Out/Discharge Documenting (check all that apply): Patient Departure All imaging exams completed and their final reports reviewed: No Studies - Discharge Plan Condition: Stable Disposition: HOME Prescriptions: cephALEXin [Keflex] 500 mg PO QID #28 capsule Patient Education Materials: Cellulitis (ED) Referrals: Narcisa Barillas MD [Primary Care Provider] - Additional Instructions: Take 2 doses of cephalexin tonight before bed. Try to advance your visit with Dr. Barillas to Monday. If you are not seeing a response to antibiotic treatment by Monday, I suggest a re-evaluation with Dr. Barillas or in the emergency room, because it is likely that you will need imaging (You can check with the front staff of [facility] regarding available imaging that day as well.). Continue compressing. Ensure that you take furosemide regularly and keep your legs elevated. - Billing Disposition and Condition Condition: STABLE Disposition: Home
== END 2019-06-12 18:58 | disposition home or self-care (01) ==
LOC: UCCORT 17:18
DX: K12.2 Cellulitis and abscess of mouth (principal); I10 Essential (primary) hypertension; G62.9 Polyneuropathy, unspecified; I89.0 Lymphedema, not elsewhere classified; F17.210 Nicotine dependence, cigarettes, uncomplicated; Z88.1 Allergy status to other antibiotic agents
CPT/HCPCS: 99212; G0463